=== PATIENT | female | born 1995 | race Caucasian/White ===

== ENCOUNTER → 2018-01-17 16:58 | Outpatient (CLI) | payer BC, SELFPAY | PROVIDERS: Visit Provider Nurse Practitioner Women's Health | DX: Z34.00 Encounter for supervision of normal first pregnancy, unspecified trimester (principal); Z3A.00 Weeks of gestation of pregnancy not specified | CPT/HCPCS: 87086; 87088 ==

== ENCOUNTER → 2018-01-22 13:56 | Outpatient (CLI) | payer BC, SELFPAY ==
--- NOTE | 2018-01-22 13:57 | US_ITS ---
STUDY: SECOND AND THIRD TRIMESTER OBSTETRICAL ULTRASOUND REASON FOR EXAM: Female, 22 years old. Bleeding LMP: TECHNIQUE: Transabdominal PRIOR ULTRASOUND: None. FINDINGS: There is a single intrauterine fetus. The fetus is in a transverse lie with the head to the maternal right. There is demonstrated cardiac activity with a heart rate of 149 bpm. There is a normal amniotic fluid volume. The largest amniotic fluid pocket measures 4.2 x 4.4 cm. The amniotic fluid index (NICOLE) is normal The placenta is posterior and low lying. Is 1.4 cm from the internal os. There are Grade 0 placental changes. The cervix measures in length. The bilateral adnexal regions are normal. BIOMETRY: BPD: 4.0 cm : 18 weeks, 7 days HC: 14.9 cm: 18 weeks, 1 days AC: 12.6 cm: 18 weeks, 2 days FL: 3.1 cm: 19 weeks, 4 days CI: 0.81 FL/BPD: 0.76 FL/HC: FL/AC: 0.24 HC/AC: 1.19 age by current US: 18 weeks, 4 days. LELE by current US: 06/21/2018. Estimated weight: 252 grams, +/- 37 grams, 85 %. Age by LMP: 18 weeks, 0 days. LELE by LMP: 06/25/2018. ANATOMY: Gender: Cranium: Normal lateral ventricles. Normal choroid plexus. Normal cerebellum. Normal cisterna magna. Normal face, nose and lips. Chest: 4 chambered heart not visualized because of position. Abdomen/Pelvis: Normal diaphragm. Normal stomach. Normal abdominal wall. Normal cord insertion. Normal 3 vessel cord. Normal kidneys. Normal bladder. Spine: Normal cervical spine. Normal thoracic spine. Normal lumbar spine. Normal sacrum. Extremities: Normal bilateral upper extremities. Normal bilateral lower extremities. IMPRESSION: Intrauterine with fetus in a transverse lie with the head to the maternal right. Composite measurements average out to be equivalent to 18 weeks 4 days +/- 5 days with an expected date of delivery of 06/21/2018. Estimated weight of 25 2 g +/- 3 7 g. This is in the 85th percentile Electronically Signed: Cristobal Chan, at 7:34 EDT Tel , Service support , US/OB Anatomy Scan
== END ==
PROVIDERS: Visit Provider Obstetrics & Gynecology
DX: O46.90 Antepartum hemorrhage, unspecified, unspecified trimester (principal); Z3A.00 Weeks of gestation of pregnancy not specified
CPT/HCPCS: 76805

== ENCOUNTER → 2018-04-04 07:48 | Outpatient (CLI) | payer BC, SELFPAY ==
--- NOTE | 2018-04-04 07:52 | US_ITS ---
STUDY: SECOND AND THIRD TRIMESTER OBSTETRICAL ULTRASOUND - LIMITED REASON FOR EXAM: Female, 22 years old. Gross. History of low-lying placenta. LMP: September 18, 2017. PRIOR ULTRASOUND: January 22, 2018. TECHNIQUE: Transabdominal # of Images: 73 TECHNICAL QUALITY: Adequate. FINDINGS: There is a single intrauterine fetus. The fetus is in a cephalic presentation. There is demonstrated cardiac activity with a heart rate of 60 bpm. There is a normal amniotic fluid volume. The largest amniotic fluid pocket measures 3.8 to cm. The amniotic fluid index (NICOLE) is 13.23 cm. The placenta is anterior in location and is not low lying. There are Grade 1 placental changes. The cervix measures 3.1 cm cm in length. BIOMETRY: BPD: 7.24 cm: 29 weeks, 1 days HC: 26.98 cm: 29 weeks, 3 days AC: 24.65 cm: 29 weeks, 0 days FL: 5.47 cm: 29 weeks, 0 days Age by LMP: 28 weeks, 2 days. LELE by LMP: June 25, 2018.. age by prior US: 28 weeks, 6 days. LELE by prior US: June 21, 2018. age by current US: 29 weeks, 1 days. LELE by current US: June 19, 2089. Estimated weight: 131, grams, +/- 191 grams, 63 percentile. A four-chamber view of the normal heart was obtained. US/OB Limited With Biometrics IMPRESSION: 1. Live single uterine at 29 weeks, 1 day. LELE is June 19, 2018. There is adequate interval growth since the prior study. 2. EFW 1311 g. 3. NICOLE is 13.23 cm. 4. Anterior grade 1 placenta. 5. Normal four-chamber view of the heart. Electronically Signed: Kris Rodriguez DO at 8:07 EDT Tel [phone], Service support ,
[2018-04-04 09:55] LABS: Absolute Lymphocyte Count 1.79 X10^3/ul (0.83-4.51); Absolute Neutrophil Count 12.3 X10^3/uL (2.0-7.7); Basophil# 0.02 X10^3/uL; Basophil% 0.1 % (0-1); Eosinophil# 0.08 X10^3/uL; Eosinophils% 0.5 % (0-5); Hematocrit 38.3 % (37-47); Hemoglobin 12.6 g/dl (12.0-15.0); Lymphocyte # 1.79 X10^3/ul (4.0); Lymphocyte % 11.9 % (19-41); Mean Corp Hgb Conc 32.9 g/gl (32-36); Mean Corpuscular Hgb 28.4 pg (27.0-32.0); Mean Corpuscular Volume 86.5 fL (81-99); Mean Platelet Vol. 8.6 fl (6.2-12.0); Monocyte# 0.75 X10^3/uL; Neutrophil # 12.33 X10^3/uL (2.7-7.7); Platelet Count 266 K/mm3 (150-450); RBC Distribution Width CV 13.2 % (11.6-14.6); RBC Distribution Width SD 42.2 fl (35.1-43.9); Red Blood Count 4.43 M/mm3 (4.2-5.4); White Blood Count 15.1 K/mm3 (4.4-11.0)
[2018-04-04 09:59] LABS: POSITIVE COUNT NO; POSITIVE DIFFERENTIAL NO; POSITIVE MORPHOLOGY NO
[2018-04-04 10:03] LABS: Glucose Challenge Gest 1H 50g 109 mg/dL (70-140)
== END ==
LOC: OPUS 07:50 → PAVLAB 09:21
PROVIDERS: Visit Provider Obstetrics & Gynecology
DX: Z34.92 Encounter for supervision of normal pregnancy, unspecified, second trimester (principal)
CPT/HCPCS: 36415; 76816; 82950; 85025; 86850; 86900

== ENCOUNTER → 2018-04-04 21:11 | Outpatient (CLI) | payer BC, SELFPAY | PROVIDERS: Referring Provider Obstetrics & Gynecology; Visit Provider Obstetrics & Gynecology | DX: O26.899 Other specified pregnancy related conditions, unspecified trimester (principal); M54.5 Low back pain; Z86.32 Personal history of gestational diabetes | CPT/HCPCS: 87086; 87088 ==

== ENCOUNTER → 2018-05-26 17:15 | Outpatient (CLI) | payer BC, SELFPAY ==
[2018-05-26 08:52] VITALS: BMI 38.4
--- OUTSIDE RECORDS SUMMARY | 2018-07-13 02:25 | XMS RPT_ITS ---
:1995 Author Organization OHIP Support Name Relationship Address Phone SHIMA HOOKS Unavailable [address] + [place] [phone] JANE COATES Unavailable [address] + [place] [address] [facility] Unavailable [address] + [place] [address] SHIMA HOOKS Unavailable Unavailable + SHIMA HOOKS Unavailable Unavailable + SHIMA HOOKS Unavailable [address] + [place] [address] JANE COATES Unavailable [address] + [place] [address] [facility] Unavailable [address] + [place] [address] SHIMA HOOKS Unavailable [address] + [place] [address] JANE COATES Unavailable [address] + [place] [address] [facility] [address] + [place] [address] SHIMA HOOKS Unavailable [address] + [place] [address] JANE COATES Unavailable [address] + [place] [address] [facility] Unavailable [address] + [place] [address] SHIMA HOOKS Unavailable [address] + [place] [address] JANE COATES Unavailable [address] + [address] [facility] [place] Unavailable [address] + [place] [address] JESSEE SHIMA Unavailable [address] + [place] [address] JANE COATES Unavailable [address] + [address] [facility] [place] Unavailable [address] + [place] [address] JESSEE SHIMA Unavailable [address] + [place] [address] JANE COATES Unavailable [address] + [address] [facility] [facility] Unavailable [address] + [place] [address] JESSEE SHIMA Unavailable [address] + [place] [address] JANE COATES Unavailable [address] + [address] [facility] [place] Unavailable [address] + [place] [address] JESSEE SHIMA Unavailable [address] + [place] [address] JANE COATES Unavailable [address] + [address] [facility] [facility] Unavailable [address] + [place] [address] SHIMA HOOKS Unavailable [address] + [place] [address] JANE COATES Unavailable [address] + [place] [phone] [facility] [place] Unavailable [address] + [place] [address] SHIMA HOOKS Unavailable [address] + [place] [phone] JANE COATES Unavailable [address] + [place] [address] [facility] [place] Unavailable [address] + [place] [address] SHIMA HOOKS Unavailable Unavailable + SHIMA HOOKS Unavailable [address] + [place] [address] JANE COATES Unavailable [address] + [place] [address] [facility] [place] Unavailable [address] + [place] [address] SHIMA HOOKS Unavailable [address] + [place] [address] JANE COATES Unavailable [address] + [place] [phone] [facility] [place] Unavailable [address] + [place] [address] SHIMA HOOKS Unavailable [address] + [place] [phone] JANE COATES Unavailable Unavailable + [facility] [place] Unavailable [address] + [place] [address] SHIMA HOOKS Unavailable [address] + [place] [address] JANE COATES Unavailable . + [place] [address] [facility] [place] Unavailable [address] + [place] [address] SHIMA HOOKS Unavailable [address] + [place] [address] JANE COATES Unavailable . + [place] [address] [facility] [place] Unavailable [address] + [place] [address] SHIMA HOOKS Unavailable [address] + [place] [address] JANE COATES Unavailable Unavailable + [facility] [place] Unavailable [address] + [place] [address] SHIMA HOOKS Unavailable Unavailable + SHIMA HOOKS Unavailable [address] + [place] [phone] JANE COATES Unavailable Unavailable + [facility] Unavailable [address] + [place] [address] SHIMA HOOKS Unavailable [address] + [address] Unavailable Unavailable + [place] [address] SHIMA HOOKS Unavailable [address] + [place] [phone] JANE COATES Unavailable [address] + [address] Unavailable [address] + [place] [address] YURI WILEY Unavailable Unavailable + SHIMA HOOKS Unavailable [address] + [place] [address] JANE COATES Unavailable [address] + [place] [phone] [facility] Unavailable [address] + [place] [address] YURI WILEY Unavailable Unavailable + Care Team Providers Name Role Phone Elisa Dumont Attending Unavailable Elisa Dumont Referring Unavailable Elisa Dumont Attending Unavailable Kelsey, Benjie Referring Unavailable FlagtownLoni Attending Unavailable Kelsey, Benjie Referring Unavailable Kelsey, Benjie Primary Care Unavailable Elisa Dumont Attending Unavailable Kelsey, Benjie Referring Unavailable Primay Care Physicia, No Primary Care Unavailable Elisa Dumont Attending Unavailable Kelsey, Benjie Referring Unavailable Elisa Dumont Admitting Unavailable Elisa Dumont Attending Unavailable Elisa Dumont Referring Unavailable Kelsey, Benjie Primary Care Unavailable Elisa Dumont Attending Unavailable Kelsey, Benjie Referring Unavailable Elisa Dumont Attending Unavailable Kelsey, Benjie Primary Care Unavailable Elisa Dumont Admitting Unavailable Marcanthony, Elisa Referring Unavailable Marcanthony, Elisa Admitting Unavailable Marcanthony, Elisa Attending Unavailable Marcanthony, Elisa Referring Unavailable Kelsey, Benjie Primary Care Unavailable Marcanthony, Elisa Consulting Unavailable Marcanthony, Elisa Admitting Unavailable Marcanthony, Elisa Attending Unavailable Marcanthony, Elisa Referring Unavailable Kelsey, Benjie Primary Care Unavailable Marcanthony, Elisa Consulting Unavailable Marcanthony, Elisa Attending Unavailable Kelsey, Benjie Referring Unavailable Marcanthony, Elisa Attending Unavailable Primay Care Physicia, No Primary Care Unavailable Marcanthony, Elisa Referring Unavailable [place], Loni Attending Unavailable Kelsey, Benjie Primary Care Unavailable Jamar, Loni Referring Unavailable Marcanthony, Elisa Attending Unavailable Primay Care Physicia, No Primary Care Unavailable Marcanthony, Elisa Attending Unavailable Primay Care Physicia, No Primary Care Unavailable Marcanthony, Elisa Referring Unavailable Aba, Cristina Attending Unavailable Marcanthony, Elisa Attending Unavailable Kelsey, Benjie Referring Unavailable [place], Loni Attending Unavailable Kelsey, Benjie Referring Unavailable Kelsey, Benjie Attending Unavailable Marcanthony, Elisa Attending Unavailable Kelsey, Benjie Referring Unavailable Marcanthony, Elisa Attending Unavailable Kelsey, Benjie Referring Unavailable Anjum Chester Attending Unavailable Kelsey, Benjie T Primary Care Unavailable Anjum Chester Attending Unavailable Kelsey, Benjie T Primary Care Unavailable Anjum Chester Admitting Unavailable NemoAnjum mccormick Admitting Unavailable NemoAnjum mccormick Attending Unavailable Kelsey, Benjie T Primary Care Unavailable Anjum Chester Attending Unavailable Kelsey, Benjie T Primary Care Unavailable Anjum Chester Admitting Unavailable Anjum Chester Attending Unavailable Kelsey, Benjie T Primary Care Unavailable Anjum Chester Attending Unavailable Kelsey, Benjie T Primary Care Unavailable NemoAnjum mccormick Attending Unavailable Kelsey, Benjie T Primary Care Unavailable MANJULA PARISI Attending Unavailable KELSEY, BENJIE DOVER Primary Care Unavailable KELSEY, BENJIE DOVER Attending Unavailable KELSEY, BENJIE JAZZMINE Primary Care Unavailable MANJULA PARISI Attending Unavailable KELSEY, BENJIE JAZZMINE Primary Care Unavailable KELSEY, BENJIE DOVER Attending Unavailable KELSEY, BENJIE JAZZMINE Primary Care Unavailable PROBLEMS PROBLEMS DATE TYPE CONDITION / CODE ATTENDING STATUS SOURCE 06/18/2018 Unknown G89.18 - Other acute Marcanthony, Active [place] postprocedural pain [facility] / G89.18(ICD-10) Hospital Repository 06/13/2018 Unknown Z86.32 - Personal Marcanthony, Active [place] history of [facility] gestational diabetes Hospital / Z86.32(ICD-10) Repository 06/13/2018 Unknown Z3A.37 - 37 weeks Marcanthony, Active [place] gestation of [facility] / Hospital Z3A.37(ICD-10) Repository 06/13/2018 Unknown Z34.82 - Encounter Marcanthony, Active [place] for supervision of [facility] other normal Hospital , second Repository trimester / Z34.82(ICD-10) 06/13/2018 Unknown Z30.2 - Encounter Marcanthony, Active [place] for sterilization / [facility] Z30.2(ICD-10) Hospital Repository 05/26/2018 Unknown Z34.90 - Encounter Marcanthony, Active [place] for supervision of [facility] normal , Hospital unspecified, Repository unspecified trimester / Z34.90(ICD-10) 05/26/2018 Unknown Z3A.36 - 36 weeks Marcanthony, Active [place] gestation of [facility] / Hospital Z3A.36(ICD-10) Repository 05/16/2018 Unknown Z3A.34 - 34 weeks Marcanthony, Active [place] gestation of [facility] / Hospital Z3A.34(ICD-10) Repository 05/02/2018 Unknown Z3A.32 - 32 weeks Loni Roldan Active [place] gestation of [facility] / Hospital Z3A.32(ICD-10) Repository 04/07/2018 Unknown O26.899 - Other Marcanthony, Active [place] specified [facility] related conditions, Hospital unspecified Repository trimester / O26.899(ICD-10) 04/07/2018 Unknown M54.5 - Low back Marcanthony, Active [place] pain / M54.5(ICD-10) [facility] Hospital Repository 04/04/2018 Unknown Z3A.21 - 21 weeks Marcanthony, Active [place] gestation of [facility] / Hospital Z3A.21(ICD-10) Repository 04/04/2018 Unknown O44.42 - Low lying Marcanthony, Active [place] placenta NOS or [facility] without hemorrhage, Hospital second trimester / Repository O44.42(ICD-10) 04/04/2018 Unknown Z23 - Encounter for Marcanthony, Active [place] immunization / [facility] Z23(ICD-10) Hospital Repository 04/04/2018 Unknown O09.893 - Marcanthony, Active [place] Supervision of other [facility] high risk Hospital pregnancies, third Repository trimester / O09.893(ICD-10) 04/04/2018 Unknown Z67.91 - Unspecified Marcanthony, Active [place] blood type, Rh [facility] negative / Hospital Z67.91(ICD-10) Repository 01/18/2018 Unknown Z34.00 - Encounter [place], Loni Active [place] for supervision of [facility] normal first Hospital , Repository unspecified trimester / Z34.00(ICD-10) 01/17/2018 Unknown O46.90 - Antepartum [place], Loni Active [place] hemorrhage, [facility] unspecified, Hospital unspecified Repository trimester / O46.90(ICD-10) 01/17/2018 Unknown Z3A.17 - 17 weeks Jamar, Loni Active [place] gestation of [facility] / Hospital Z3A.17(ICD-10) Repository PROCEDURES PROCEDURES No Procedure Records FoundRESULTS RESULTS OPERATIVE REPORT Observed: 06/17/2018 Status: F Source: [place] 11:35 AM [facility] REPOSITORY [facility] Medical Records Department [address] [place] [address] Operative Report 06/16/18 1433 MR#: [id number] Acct: [id number] Name: DARA HOOKS Rep #: [id number] : 1995 22 From: Elisa Dumont MD PCP: Benjie Cole Status: ADM IN Location: [place] [id number] Problem List (1) Active labor at term Status: Acute (2) Request for sterilization Status: Acute Comment: plan PPTL (3) Abnormal blood testing Status: Acute Comment: 12/11/17- preliminary positive HIV- retest was negative. tests repeated at previous office (4) Status: Acute Qualifiers: Comment: genetic and ntd screening declined. anatomy scan normal (5) Supervision of normal in second trimester Status: Acute Qualifiers: Comment: PRR EDC 06/25/18 Gr 3/ boy [facility] Kristen Spouse:Shima (6) History of gestational diabetes Status: Acute Report of Operation Date of Procedure: 06/16/18 Pre-Operative Diagnosis: sterilization Post-Operative Diagnosis: same Surgery/Procedure Performed:: tubal ligation via Filshie clips Description of Surgical Findings:: Normal uterus and tubes and ovaries bilaterally Type of Anesthesia:: Epidural Special Medications: none Specimen's removed: none Drains: Devlin Estimated Blood Loss (mL): 100 Fluids Replaced: cryStyloid Description of Procedure: Patient was taken to the operating room and epidural anesthesia was found to be adequate. Patient was placed in the dorsal supine position was prepped and draped in normal sterile fashion. Devlin catheter was used to drain the bladder. Infra umbilical incision was made with a scalpel after injecting with marcaine and carried through the underlying layer of the fascia with a scalpel fascial incision was extended bilaterally with Aguilera scissors and bowel packed away and the right fallopian tube identified confirmed to be fallopian tube by following it out to the fimbria and a Filshie clip was applied in the mid interstitial portion of the fallopian tube noting to completely transect the tube. This was repeated on the left side where the tube was identified and followed out to the fimbria and confirmed to be fallopian tube and then the mid interstitial portion of the tube was completely transected with the Filshie clip. Excellent hemostasis was noted. Fascia was closed with 0 Vicryl and skin closed with 3-0 Monocryl. No complications. Patient was taken recovery in stable condition. Grafts/Implants Used: Filshie clips - Complications none 06/17/18 1135 <Electronically signed by Elisa Dumont MD> Date Elisa Dumont MD CC: Benjie Cole; Elisa Dumont MD Signed DISCHARGE INSTRUCTION Observed: 06/16/2018 Status: F Source: [place] 3:37 AM [facility] REPOSITORY [facility] Medical Records Department [address] [facility] [place] [address] Instructions for Home/Discharge Instructions 06/16/18 0336 MR#: [id number] Acct: [id number] Name: DARA HOOKS Rep #: [id number] : 1995 22 From: Elisa Dumont MD PCP: Bnejie Cole Status: ADM IN Discharge Diet: No Restrictions - Increase fluid intake for the next 48 hours. Discharge Activity: Return to Normal Activity, May Drive - when you are no longer taking narcotic pain medications., May Shower, May Take a Tub Bath - in 7 days May resume sexual activity in: 4-6 weeks Additional Activity Instructions:: Ambulate often the next week after surgery. Nothing in the vagina for 5 days. Call your doctor if your incision/area has: Continuous Slow Oozing, Sudden Increased Bleeding, Increased Pain/ Swelling, Increased Redness, Foul Smelling Discharge Call your doctor if you observe: Fever of 101 or Higher Additional Instructions: If you experience any of the following, contact your healthcare provider. * Bleeding that soaks a pad every hour for 2 hours * Fever 100.4 or higher * Unrelieved incision or abdominal pain * Swelling, redness, discharge or bleeding from your incision or episiotomy site * Your incision begins to separate * Problems urinating (including inability to urinate or burning while urinating). * Visual changes * Severe headache * Flu-like symptoms * Pain or redness in one of both of your breasts * Pain, warmth, tenderness or swelling in your legs, especially the calf area * Frequent nausea and vomiting * Symptoms of depression or anxiety If you experience any of the following, call 911 or go to the nearest Emergency Room. * Chest pain * Problems breathing * Seizure activity * Partial or complete paralysis of a body part, slurred speech, weakness or drooping of the face, or a sudden inability to walk or hold your balance Allergies/Adverse Reactions: Allergies No Known Allergies Allergy (Verified 06/13/18 09:19) Medications to take at Discharge docosahexanoic acid 200 mg capsule 1 tab PO DAILY 01/17/18 acetaminophen 500 mg tablet 500 mg PO Q6H PRN 03/14/18 loratadine 10 mg tablet 10 mg PO DAILY 05/16/18 Please Follow Up With: Elisa Dumont MD - [phone] When: Call to make an appointment with your doctor in 6 weeks. If you had elevated Blood pressure or 4th degree laceration you will need to be seen in 2 weeks. Primary Care Physician: Benjie Cole [Primary Care Provider] - Test Results: Test results from this visit will be discussed in further detail at your follow-up appointment, if applicable. 06/16/18 0337 <Electronically signed by Elisa Dumont MD> Date Elisa Dumont MD CC: Benjie Cole Signed DISCHARGE INSTRUCTION Observed: 06/16/2018 Status: F Source: [place] 3:36 AM [facility] REPOSITORY [facility] Medical Records Department [address] [place] [address] Instructions for Home/Discharge Instructions 06/16/18335 MR#: [id number] Acct: [id number] Name: DARA HOOKS Rep #: [id number] : 1995 From: Elisa Dumont MD PCP: Benjie Cole Status: ADM IN Discharge Diet: No Restrictions - Increase fluid intake for the next 48 hours. Discharge Activity: Return to Normal Activity, May Drive - when you are no longer taking narcotic pain medications., May Shower, May Take a Tub Bath - in 7 days Additional Activity Instructions:: Ambulate often the next week after surgery. Nothing in the vagina for 5 days. Call your doctor if your incision/area has: Continuous Slow Oozing, Sudden Increased Bleeding, Increased Pain/ Swelling, Increased Redness, Foul Smelling Discharge Call your doctor if you observe: Fever of 101 or Higher Allergies/Adverse Reactions: Allergies No Known Allergies Allergy (Verified 06/13/18 09:19) Medications to take at Discharge docosahexanoic acid 200 mg capsule 1 tab PO DAILY 01/17/18 acetaminophen 500 mg tablet 500 mg PO Q6H PRN 03/14/18 loratadine 10 mg tablet 10 mg PO DAILY 05/16/18 Primary Care Physician: Benjie Cole [Primary Care Provider] - Test Results: Test results from this visit will be discussed in further detail at your follow-up appointment, if applicable. Please Follow Up With: Elisa Dmuont MD - [phone] 06/16/18335 <Electronically signed by Elisa Dumont MD> Date Elisa Dumont MD CC: Benjie Cole Signed OPERATIVE REPORT Observed: 06/16/2018 Status: F Source: [place] 3:33 AM [facility] REPOSITORY [facility] Medical Records Department [address] [place] [address] Operative Report 06/16/18 0327 MR#: [id number] Acct: [id number] Name: DARA HOOKS Rep #: [id number] : 1995 22 From: Elisa Dumont MD PCP: Benjie Cole Status: ADM IN Y Location: [id number] - Problem List (1) Active labor at term Status: Acute (2) Request for sterilization Status: Acute Comment: plan PPTL (3) Abnormal blood testing Status: Acute Comment: 12/11/17- preliminary positive HIV- retest was negative. tests repeated at previous office (4) Status: Acute Qualifiers: Comment: genetic and ntd screening declined. anatomy scan normal (5) Supervision of normal in second trimester Status: Acute Qualifiers: Comment: PRR EDC 06/25/18 Gr 3/ boy NoOh [place] Spouse:Shima (6) History of gestational diabetes Status: Acute Vaginal Delivery Maternal Presentation: Active Labor 22 yo @ 38w5d IAL Amniotic Membrane Rupture Type: Artificial Amniotic Fluid Description: Clear Final LELE: 06/25/18 Gestational age: 38 Weeks and 5 Days Date of Procedure: 06/16/18 Pre-Operative Diagnosis: ial Post-Operative Diagnosis: same Surgery/ Procedure Performed: Spontaneous Vaginal Delivery Type of Anesthesia: Epidural Description of Procedure: Patient began pushing and delivered the head in the QASIM presentation. The head was delivered atraumatically. The anterior and posterior shoulders delivered without complication followed by the rest of the infant and the infant was placed on the maternal abdomen. Delayed cord clamping was employed for approximately 60 seconds. Cord was clamped and cut and gentle traction was applied to the cord and the placenta delivered spontaneously immediately following it was noted to be intact with three-vessel cord. The perineum and vagina were inspected and noted to have no laceration. EBL was 100 cc. Patient and tolerated delivery well. Presentation: VINITA Placental Delivery Description: Spontaneous Placenta Disposition: [facility] Cord Vessel Description: 3 Vessels Cord Entanglement: None Estimated Blood Loss: 100 Infant A gender: Male Episiotomy Description: None Laceration: None Medications given after delivery: IV Pitocin Complications: None 06/16/18 0333 <Electronically signed by Elisa Dumont MD> Date Elisa Dumont MD CC: Benjie Cole; Elisa Dumont MD Signed HISTORY AND PHYSICAL Observed: 06/16/2018 Status: F Source: [place] EXAM 3:26 AM [facility] REPOSITORY [facility] Medical Records Department [address] [place] [address] History and Physical 06/16/18 0321 MR#: [id number] Acct: [id number] Name: DARA HOOKS Rep #: [id number] : 1995 22 From: Elisa Dumont MD PCP: Benjie Cole Status: ADM IN Location: [id number] - Problem List (1) Active labor at term Status: Acute (2) Request for sterilization Status: Acute Comment: plan PPTL (3) Abnormal blood testing Status: Acute Comment: 12/11/17- preliminary positive HIV- retest was negative. tests repeated at previous office (4) Status: Acute Qualifiers: Comment: genetic and ntd screening declined. anatomy scan normal (5) Supervision of normal in second trimester Status: Acute Qualifiers: Comment: PRR EDC 06/25/18 Gr 3/ boy Marilia [place] Spouse:Shima (6) History of gestational diabetes Status: Acute History Date of Admission: 06/16/18 Final LELE: 06/25/18 Gestational age: 38 Weeks and 5 Days History of this : This is a 22 year-old, at 38 weeks gestational age presents in active labor 5-6 cm. Patient has had an uncomplicated and tonight denied any vaginal bleeding loss of fluid and admits good movement. Medical History: Medical History (Last Reviewed 06/13/18 @ 09:19 by Juju Clayton) Gestational diabetes O24.419 Allergies No Known Allergies Allergy (Verified 06/13/18 09:19) Home Medications: Home Medications docosahexanoic acid 200 mg capsule 1 tab PO DAILY 01/17/18 acetaminophen 500 mg tablet 500 mg PO Q6H PRN 03/14/18 loratadine 10 mg tablet 10 mg PO DAILY 05/16/18 Smoking Status: Former smoker Alcohol: None Number of Fetus(es): 1 Heart Tracing: heart tones 130s moderate variability reactive no decelerations category 1 tracing TOCO Analysis: 2-3 minutes History Past Pregnancies: Past Pregnancies Past Pregnancies Del. DateName GA/Weeks Outcome Route Bth WeighInfant GeLabor LgtAnesthesiDel LocatProvider FOB t n h a n Delivery Date: 12/20/15 On 01/17/18 @ 12:07 SheridanDara osman Gestational diabetes. Patient was induced at 39 weeks due to gestational diabetes. No other issues during or delivery. Labs: Mom's Problem List Problem Status Onset Code Active labor at term Acute Mom's Labs AND Results WBC 16.4 H RBC 4.14 L Course Did the patient receive Yes care? Labs Blood Type: B Current Obstetrical History Gestational Diabetes No Incompetent Cervix No Infertility No IUGR No Macrosomia No Hypertension/Pre-eclampsia No Placenta Previa/Abruption Yes: resolved PTL/PROM No Uterine anomaly No Oligohydramnios No Polyhydramnios No Multiple gestation No Past Medical History Asthma No Diabetes No Hypertension No Heart disease No Mitral valve prolapse No Neurologic/Seizure disorder/ No Migraines Kidney disease No Liver disease No Varicosities No Clotting disorders/Hx of DVT No Thyroid Dysfunction No Other medical diseases No Psychiatric disorders No Major trauma No Abnormal PAP smear No Sleep apnea No Mammogram in the last 2 years No Social History Marital Status: Alleged father Shima Hx Smoking Yes Smoking Status Former smoker Expected Delivery Method: Spontaneous Vaginal Review of Systems Constitutional: Denies: Fever, Malaise Eyes: Denies: Blurred vision, Vision Change HEENT: Denies: Head Aches, Visual Changes Cardiovascular: Denies: Chest Pain, Palpitations Respiratory: Denies: Cough, Shortness of Breath, Wheezing Gastrointestinal: Reports: Abdominal Pain. Denies: Diarrhea, Nausea, Vomiting Genitourinary: Denies: Dysuria, Hematuria Musculoskeletal: Denies: Joint Pain, Muscle pain Skin: Denies: Lesions, Rash Neurological: Denies: Blurred vision, Focal weakness, Headaches Psychiatric: Denies: Anxiety, Depression Endocrine: Denies: Heat/ Cold Intolerance Hematologic/ Lymphatic: Denies: Easy Bruising, Easy Bleeding Physical Exam General: Alert, Cooperative, No apparent distress HEENT: Atraumatic, Normocephalic. Negative for: Thyromegaly, Lymphadenopathy Cardiovascular: Regular rate Lungs: Normal air movement Abdomen: Soft, Non Tender, Gravid Neurological: Deep Tendon Reflexes 2+/4 and Symmetrical, Neuro grossly intact. Negative for: Clonus MOSHGIACH: Normal external genitalia. Negative for: Vulvar lesions Estimated gestational size: Appropriate for gestational size Presentation: Cephalic Assessment/Plan All Active Problems (Last Reviewed 06/13/18 @ 09:19 by Juju Clayton) Active labor at term (Acute) Request for sterilization (Acute) Abnormal blood testing (Acute) (Acute) Supervision of normal in second trimester (Acute) History of gestational diabetes (Acute) Low lying placenta nos or without hemorrhage, second trimester (Resolved) This is a 22 year-old, at 38 weeks gestational age presents IAL Patient presents IAL, plan expectant management for , pitocin PRN. arom clear fluid Pain management: plans epidural. GBS negative Management of any complications: none. plan PPTL I have [facility] and made any clinically relevant updates. 06/16/18 0326 <Electronically signed by Elisa Dumont MD> Date Elisa Dumont MD Cosigner Signature: Date (if applicable) CC: Benjie Cole; Elisa Dumont MD Signed CBC-COMPLETE BLOOD CNT Collected: 06/15/2018 Status: F Source: [place] NO DIFF 10:20 PM [facility] REPOSITORY TYPE CODE TESTS RESULT OUT OF RANGE REFERENCE UNITS LAB L100.1000 4.4-11.0 K/mm3 High WBC 16.4 LAB L100.1200 4.2-5.4 M/mm3 Low RBC 4.14 LAB L100.1300 12.0-15.0 g/dl Low HGB 11.1 LAB L100.1400 37-47 % Low HCT 34.3 LAB L100.1500 81-99 fL Normal MCV 82.9 LAB L100.1600 27.0-32.0 pg Low MCH 26.8 LAB L100.1700 32-36 g/gl Normal MCHC 32.4 LAB L100.1810 11.6-14.6 % Normal RDW CV 13.4 LAB L100.1820 35.1-43.9 fl Normal RDW SD 40.9 LAB L100.1900 150-450 K/mm3 Normal PLT 255 LAB L100.2000 6.2-12.0 fl Normal MPV 8.5 Performed By: #### L100.0500 #### [facility] [address] [place], [address] TYPE AND SCREEN Collected: 06/15/2018 Status: F Source: [place] 10:20 PM [facility] REPOSITORY Order Comment: Reason for Type AND Screen/Red Cells: TYPE CODE TESTS RESULT OUT OF RANGE REFERENCE UNITS LAB B10.0800 B Normal BLOOD TYPE GEL POSITIVE LAB B100.4000 Normal Antibody NEGATIVE Screen Performed By: #### B101.7450 #### [facility] [address] [place], [place], [address] SOCIAL SERVICE LIAISON OFFICE VISIT Observed: 06/13/2018 Status: F Source: [place] REPORT 9:32 AM [facility] REPOSITORY [facility] [address] [place] [address] OFFICE VISIT Date of Service: 06/13/18 MR#: [id number] Acct: [id number] Name: DARA HOOKS Reynaldo Rep #: [id number] : 1995 Provider: Elisa Dumont MD Age/Sex: 22/F Location: [facility] [place] Status: Signed Intake Vital Signs06/13/18 Body Mass Index (BMI) 38.4 06/13/18 Height 5 ft 9 in 06/13/18 Weight: 263 lb 8 oz 06/13/18 Body Mass Index (BMI) 38.9 12/28/18 Blood Pressure 124/84 H Intake Visit Reasons: 38 week ob Director Of Corporate Responsibility Required: No Is patient in pain?: No Allergies No Known Allergies Allergy (Verified 06/13/18 09:19) Medications docosahexanoic acid 200 mg capsule mg PO 01/17/18 [History Confirmed 06/13/18] acetaminophen 500 mg tablet 500 mg PO Q6H PRN 03/14/18 [History Confirmed 06/13/18] loratadine 10 mg tablet 10 mg PO DAILY 05/16/18 [History Confirmed 06/13/18] Last Menstral Period: 09/18/17 Zika: Zika virus screening: Negative : No PFSH PFSH Medical History Gestational diabetes (Acute) Family History Grandmother Breast cancer Hypertension Skin cancer Mother Skin cancer Social History Smoking Status: Never smoker alcohol intake: never substance use type: does not use caffeine: Yes seatbelt use: always do you feel safe at home: Yes 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 DateName GA/Weeks Outcome Route Bth WeighInfant GeLabor LgtAnesthesiDel LocatProvider FOB t n h a n Delivery Date: 12/20/15 On 01/17/18 @ 12:07 Dara Swartz Gestational diabetes. Patient was induced at 39 weeks due to gestational diabetes. No other issues during or delivery. HPI 38 week ob: Details: DARA HOOKS is a 22 year old who presents for routine OB visit. OB Visit LELE Calculator Estimated Delivery Date 06/25/18 Based on LMP (certain) 09/18/17 Current WG 38w 2d Number 1 Expected Delivery Route/Plan Specific Issue/Plans flu vaccine: Declined minichart given: yes tdap vaccine: Given 04/04/2018 rhogam: na LARC form signed: declines labor support person: Shima pain management: epidural cut cord/dad catch: maybe : yes PP control planned: PPTL special requests: [] Initial Weight: 250 lb Date Weight BP Urine PFHR FuHt Pres MCTX DilatioFetal SVisit NProvideComment rot ov n t ote r s EGA Ef Gluco faced se 01/17/1247 lb 118/83 [id number] Has had 8 (-3 lb) e off an 17 d on li w 2d Negati ght vag ve inal bl eeding and osvaldo e disco mfort. Prior O BGYN castorena s not e valuate d or do ne US t hus marcellus son for MOHAN Visit Notes Visit Date: 06/13/18 no vb lof good fm no ergular ctx Elisa Dumont MD on 06/13/18 Visit Date: 06/06/18 no vb lof good fm no regular ctx Elisa Dumont MD on 06/06/18 Visit Date: 05/26/18 no vb lof good fm no regular ctx Elisa Dumont MD on 05/26/18 Visit Date: 05/16/18 no vb lof good fm no regular ctx. multiple questions answered. title 19 form signed. Elisa Dumont MD on 05/16/18 Visit Date: 05/02/18 No VB, LOF. Doing well MARJORIE Gutierrez on 05/02/18 Visit Date: 04/18/18 no vb lof good fm no regular ctx Elisa Dumont MD on 04/18/18 Visit Date: 04/04/18 no vb lof good fm no ergular ctx Elisa Dumont MD on 04/04/18 Visit Date: 03/14/18 no vb lof good fm no regular ctx Elisa Dumont MD on 03/14/18 Visit Date: 02/11/18 no vb lof good fm no regular ctx Elisa Dumont MD on 02/19/18 Visit Date: 01/17/18 Has had off and on light vaginal bleeding and some discomfort. Prior OBGYN has not evaluated or done US thus reason for MOHAN MARJORIE Gutierrez on 01/17/18 Diagnostics Diagnostics Labs Blood Type B POSITIVE 04/04/18 Antibody Screen NEGATIVE 04/04/18 Hct 38.3 % (37-47) 04/04/18 Hgb 12.6 g/dl (12.0-15.0) 04/04/18 Obstetrics Ultrasound 04/04/18 Glucose 1 Hr 50 gm 109 mg/dL (70-140) 04/04/18 Group B Strep DNA Cancelled 05/26/18 Details: HIV: Urine Culture: Sequential Screen: NIPT Screen: Results [id number] Office Urine Glucose Negative Last Edit by Juju Clayton on 06/13/18 09:20 Office Urine Protein Trace Last Edit by Juju Clayton on 06/13/18 09:20 Assessment AND Plan Problems 1. History of gestational diabetes Z86.32 2. 37 weeks gestation of Z3A.37 genetic and ntd screening declined. anatomy scan normal 3. Request for sterilization Z30.2 plan PPTL 4. Encounter for supervision of other normal in second trimester Z34.82 PRR EDC 06/25/18 Gr 08/15 boy Marilia Peterson Spouse:Shima 5. Abnormal blood testing 12/11/17- preliminary positive HIV- retest was negative. tests repeated at previous office Plan movement and labor precautions reviewed. ACOG trimester education reviewed and updated. see problem list details for updated plan management information and see below for orders placed at this visit. [place] appropriate handout given. Orders Orders: Coding Level of Care Code OB Routine Diagnoses History of gestational diabetes Z86.32 37 weeks gestation of Z3A.37 Weeks of gestation: 37 weeks Request for sterilization Z30.2 Encounter for supervision of other normal in second trimester Z34.82 Normal : other normal Abnormal blood testing 06/13/18 0932 <Electronically signed by Elisa Dumont MD> Date Elisa Dumont MD Cosigner Signature: Date (if applicable) CC: SOCIAL SERVICE LIAISON OFFICE VISIT Observed: 06/06/2018 Status: F Source: [place] REPORT 10:49 AM [facility] REPOSITORY [facility] [address] [place] [address] OFFICE VISIT Date of Service: 06/06/18 MR#: [id number] Acct: [id number] Name: DARA HOOKS Rep #: [id number] : 1995 Provider: Elisa Dumont MD Age/Sex: 22/F Location: [facility] [place] Status: Signed Intake Vital Signs06/06/18 Body Mass Index (BMI) 38.4 06/06/18 Height 5 ft 9 in 06/06/18 Weight: 265 lb 06/06/18 Body Mass Index (BMI) 39.1 06/06/18 Blood Pressure 104/68 Intake Visit Reasons: 37 week ob Chief Complaint: est ob Director Of Corporate Responsibility Required: No Is patient in pain?: No Allergies No Known Allergies Allergy (Verified 06/06/18 10:13) Medications docosahexanoic acid 200 mg capsule mg PO 01/17/18 [History Confirmed 06/06/18] acetaminophen 500 mg tablet 500 mg PO Q6H PRN 03/14/18 [History Confirmed 06/06/18] loratadine 10 mg tablet 10 mg PO DAILY 05/16/18 [History Confirmed 06/06/18] Last Menstral Period: 09/18/17 Zika: Zika virus screening: Negative : No PFSH PFSH Medical History Gestational diabetes (Acute) Family History Grandmother Breast cancer Hypertension Skin cancer Mother Skin cancer Social History Smoking Status: Never smoker alcohol intake: never substance use type: does not use caffeine: Yes seatbelt use: always do you feel safe at home: Yes 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 DateName GA/Weeks Outcome Route Bth WeighInfant GeLabor LgtAnesthesiDel LocatProvider FOB t n h a n Delivery Date: 12/20/15 On 01/17/18 @ 12:07 Dara Swartz Gestational diabetes. Patient was induced at 39 weeks due to gestational diabetes. No other issues during or delivery. HPI 37 week ob: Details: DARA HOOKS is a 22 year old who presents for routine OB visit. OB Visit LELE Calculator Estimated Delivery Date 06/25/18 Based on LMP (certain) 09/18/17 Current WG 37w 2d Number 1 Expected Delivery Route/Plan Specific Issue/Plans flu vaccine: Declined minichart given: yes tdap vaccine: Given 04/04/2018 rhogam: na LARC form signed: declines labor support person: Shima pain management: epidural cut cord/dad catch: maybe : yes PP control planned: PPTL special requests: [] Initial Weight: 250 lb Date Weight BP Urine PrFHR FuHt Pres MoCTX DilationFetal StVisit NoProviderComments E ot v te GA G Effac lucose ed Visit Notes Visit Date: 06/06/18 no vb lof good fm no regular ctx Elisa Dumont MD on 06/06/18 Visit Date: 05/26/18 no vb lof good fm no regular ctx Elisa Dumont MD on 05/26/18 Visit Date: 05/16/18 no vb lof good fm no regular ctx. multiple questions answered. title 19 form signed. Elisa Dumnot MD on 05/16/18 Visit Date: 05/02/18 No VB, LOF. Doing well MARJORIE Gutierrez on 05/02/18 Visit Date: 04/18/18 no vb lof good fm no regular ctx Elisa Dumont MD on 04/18/18 Visit Date: 04/04/18 no vb lof good fm no ergular ctx Elisa Dumont MD on 04/04/18 Visit Date: 03/14/18 no vb lof good fm no regular ctx Elisa Dumont MD on 03/14/18 Visit Date: 02/11/18 no vb lof good fm no regular ctx Elisa Dumont MD on 02/19/18 Visit Date: 01/17/18 Has had off and on light vaginal bleeding and some discomfort. Prior OBGYN has not evaluated or done US thus reason for MOHAN MARJORIE Gutierrez on 01/17/18 Diagnostics Diagnostics Labs Blood Type B POSITIVE 04/04/18 Antibody Screen NEGATIVE 04/04/18 Hct 38.3 % (37-47) 04/04/18 Hgb 12.6 g/dl (12.0-15.0) 04/04/18 Obstetrics Ultrasound 04/04/18 Glucose 1 Hr 50 gm 109 mg/dL (70-140) 04/04/18 Group B Strep DNA Cancelled 05/26/18 Details: HIV: Urine Culture: Sequential Screen: NIPT Screen: Results [id number] Office Urine Glucose Negative Last Edit by Angelina Hurtado on 06/06/18 10:17 Assessment AND Plan Problems 1. History of gestational diabetes Z86.32 2. 37 weeks gestation of Z3A.37 genetic and ntd screening declined. anatomy scan normal 3. Encounter for supervision of other normal in second trimester Z34.82 PRR EDC 06/25/18 Gr 08/15 boy Marilia Peterson Spouse:Shima 4. Abnormal blood testing 12/11/17- preliminary positive HIV- retest was negative. tests repeated at previous office 5. Request for sterilization Z30.2 plan PPTL Plan movement and labor precautions reviewed. ACOG trimester education reviewed and updated. see problem list details for updated plan management information and see below for orders placed at this visit. [place] appropriate handout given. Orders Orders: Coding Level of Care Code OB Routine Diagnoses History of gestational diabetes Z86.32 37 weeks gestation of Z3A.37 Weeks of gestation: 37 weeks Encounter for supervision of other normal in second trimester Z34.82 Normal : other normal Abnormal blood testing Request for sterilization Z30.2 06/06/18 1049 <Electronically signed by Elisa Dumont MD> Date Elisa Dumont MD Cosigner Signature: Date (if applicable) CC: SOCIAL SERVICE LIAISON OFFICE VISIT Observed: 05/26/2018 Status: F Source: [place] REPORT 9:00 AM [facility] REPOSITORY [facility] [address] [place] [address] OFFICE VISIT Date of Service: 05/26/18 MR#: [id number] Acct: [id number] Name: DARA HOOKS Rep #: [id number] : 1995 Provider: Elisa Dumont MD Age/Sex: 22/F Location: [facility] [place] Status: Signed Intake Vital Signs05/26/18 Body Mass Index (BMI) 38.4 05/26/18 Height 5 ft 9 in 05/26/18 Weight: 264 lb 4 oz 05/26/18 Body Mass Index (BMI) 39.0 05/26/18 Blood Pressure 108/74 Intake Visit Reasons: 36 week ob Director Of Corporate Responsibility Required: No Is patient in pain?: No Allergies No Known Allergies Allergy (Verified 05/26/18 08:52) Medications docosahexanoic acid 200 mg capsule mg PO 01/17/18 [History Confirmed 05/26/18] acetaminophen 500 mg tablet 500 mg PO Q6H PRN 03/14/18 [History Confirmed 05/26/18] loratadine 10 mg tablet 10 mg PO DAILY 05/16/18 [History Confirmed 05/26/18] Last Menstral Period: 09/18/17 Zika: Zika virus screening: Negative : No PFSH PFSH Medical History Gestational diabetes (Acute) Family History Grandmother Breast cancer Hypertension Skin cancer Mother Skin cancer Social History Smoking Status: Never smoker alcohol intake: never substance use type: does not use caffeine: Yes seatbelt use: always do you feel safe at home: Yes 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 DateName GA/Weeks Outcome Route Bth WeighInfant GeLabor LgtAnesthesiDel LocatProvider FOB t n h a n Delivery Date: 12/20/15 On 01/17/18 @ 12:07 Dara Swartz Gestational diabetes. Patient was induced at 39 weeks due to gestational diabetes. No other issues during or delivery. HPI 36 week ob: Details: DARA HOOKS is a 22 year old who presents for routine OB visit. OB Visit LELE Calculator Estimated Delivery Date 06/25/18 Based on LMP (certain) 09/18/17 Current WG 35w 5d Number 1 Expected Delivery Route/Plan Specific Issue/Plans flu vaccine: Declined minichart given: yes tdap vaccine: Given 04/04/2018 rhogam: na LARC form signed: declines labor support person: Shima pain management: epidural cut cord/dad catch: maybe : yes PP control planned: PPTL special requests: [] Initial Weight: 250 lb Date Weight BP Urine PrFHR FuHt Pres MoCTX DilationFetal StVisit NoProviderComments E ot v te GA G Effac lucose ed Visit Notes Visit Date: 05/26/18 no vb lof good fm no regular ctx Elisa Dumont MD on 05/26/18 Visit Date: 05/16/18 no vb lof good fm no regular ctx. multiple questions answered. title 19 form signed. Elisa Dumont MD on 05/16/18 Visit Date: 05/02/18 No VB, LOF. Doing well MARJORIE Gutierrez on 05/02/18 Visit Date: 04/18/18 no vb lof good fm no regular ctx Elisa Dumont MD on 04/18/18 Visit Date: 04/04/18 no vb lof good fm no ergular ctx Elisa Dumont MD on 04/04/18 Visit Date: 03/14/18 no vb lof good fm no regular ctx Elisa Dumont MD on 03/14/18 Visit Date: 02/11/18 no vb lof good fm no regular ctx Elisa Dumont MD on 02/19/18 Visit Date: 01/17/18 Has had off and on light vaginal bleeding and some discomfort. Prior OBGYN has not evaluated or done US thus reason for MOHAN AMRJORIE Gutierrez on 01/17/18 Diagnostics Diagnostics Labs Blood Type B POSITIVE 04/04/18 Antibody Screen NEGATIVE 04/04/18 Hct 38.3 % (37-47) 04/04/18 Hgb 12.6 g/dl (12.0-15.0) 04/04/18 Obstetrics Ultrasound 04/04/18 Glucose 1 Hr 50 gm 109 mg/dL (70-140) 04/04/18 Details: HIV: Urine Culture: Sequential Screen: NIPT Screen: Results [id number] Office Urine Glucose Negative Last Edit by Juju Clayton on 05/26/18 08:51 Office Urine Protein Negative Last Edit by Juju Clayton on 05/26/18 08:51 Assessment AND Plan Problems 1. History of gestational diabetes Z86.32 2. Encounter for supervision of other normal in second trimester Z34.82 PRR EDC 06/25/18 Gr 3/ boy Marilia Peterson Spouse:Shima 3. 36 weeks gestation of Z3A.36 genetic and ntd screening declined. anatomy scan normal 4. Abnormal blood testing 12/11/17- preliminary positive HIV- retest was negative. tests repeated at previous office Plan movement and labor precautions reviewed. ACOG trimester education reviewed and updated. see problem list details for updated plan management information and see below for orders placed at this visit. [place] appropriate handout given. Orders Orders: Coding Level of Care Code OB Routine Diagnoses History of gestational diabetes Z86.32 Encounter for supervision of other normal in second trimester Z34.82 Normal : other normal 36 weeks gestation of Z3A.36 Weeks of gestation: 36 weeks Abnormal blood testing 05/26/18 0900 <Electronically signed by Elisa Dumont MD> Date Elisa Dumont MD Cosigner Signature: Date (if applicable) CC: Observed: 05/26/2018 Status: F Source: [place]A CULTURE, GROUP B 12:00 AM [facility] STREPTOCOCCUS REPOSITORY AMANDO Culture Group B Beta Streptococcus is not isolated. Performed By: #### M100.1800 #### [place] [facility] [address] [place], [address] SOCIAL SERVICE LIAISON OFFICE VISIT Observed: 05/16/2018 Status: F Source: [place] REPORT 11:31 AM [facility] REPOSITORY [facility] [address] [place] [address] OFFICE VISIT Date of Service: 05/16/18 MR#: [id number] Acct: [id number] Name: DARA HOOKS Rep #: [id number] : 1995 Provider: Elisa Dumont MD Age/Sex: 22/F Location: [facility] [place] Status: Signed Intake Vital Signs05/16/18 Body Mass Index (BMI) 38.4 05/16/18 Height 5 ft 9 in 05/16/18 Weight: 263 lb 05/16/18 Body Mass Index (BMI) 38.8 05/16/18 Blood Pressure 122/80 H Intake Visit Reasons: 34 week ob Chief Complaint: est ob Director Of Corporate Responsibility Required: No Is patient in pain?: No Allergies No Known Allergies Allergy (Verified 05/16/18 10:58) Medications docosahexanoic acid 200 mg capsule mg PO 01/17/18 [History Confirmed 05/16/18] acetaminophen 500 mg tablet 500 mg PO Q6H PRN 03/14/18 [History Confirmed 05/02/18] loratadine 10 mg tablet 10 mg PO DAILY 05/16/18 [History Confirmed 05/16/18] Last Menstral Period: 09/18/17 Zika: Zika virus screening: Negative : No PFSH PFSH Medical History Gestational diabetes (Acute) Family History Grandmother Breast cancer Hypertension Skin cancer Mother Skin cancer Social History Smoking Status: Never smoker alcohol intake: never substance use type: does not use caffeine: Yes seatbelt use: always do you feel safe at home: Yes 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 DateName GA/Weeks Outcome Route Bth WeighInfant GeLabor LgtAnesthesiDel LocatProvider FOB t n h a n Delivery Date: 12/20/15 On 01/17/18 @ 12:07 Dara Swartz Gestational diabetes. Patient was induced at 39 weeks due to gestational diabetes. No other issues during or delivery. HPI 34 week ob: Details: DARA HOOKS is a 22 year old who presents for routine OB visit. OB Visit LELE Calculator Estimated Delivery Date 06/25/18 Based on LMP (certain) 09/18/17 Current WG 34w 2d Number 1 Expected Delivery Route/Plan Specific Issue/Plans flu vaccine: Declined minichart given: yes tdap vaccine: Given 04/04/2018 rhogam: na LARC form signed: declines labor support person: Shima pain management: epidural cut cord/dad catch: maybe : yes PP control planned: PPTL special requests: [] Initial Weight: 250 lb Date Weight BP Urine PrFHR FuHt Pres MoCTX DilationFetal StVisit NoProviderComments E ot v te GA G Effac lucose ed Visit Notes Visit Date: 05/16/18 no vb lof good fm no regular ctx. multiple questions answered. title 19 form signed. Elisa Dumont MD on 05/16/18 Visit Date: 05/02/18 No VB, LOF. Doing well MARJORIE Gutierrez on 05/02/18 Visit Date: 04/18/18 no vb lof good fm no regular ctx Elisa Dumont MD on 04/18/18 Visit Date: 04/04/18 no vb lof good fm no ergular ctx Elisa Dumont MD on 04/04/18 Visit Date: 03/14/18 no vb lof good fm no regular ctx Elisa Dumont MD on 03/14/18 Visit Date: 02/11/18 no vb lof good fm no regular ctx Elisa Dumont MD on 02/19/18 Visit Date: 01/17/18 Has had off and on light vaginal bleeding and some discomfort. Prior OBGYN has not evaluated or done US thus reason for MOHAN MARJORIE Gutierrez on 01/17/18 Diagnostics Diagnostics Labs Blood Type B POSITIVE 04/04/18 Antibody Screen NEGATIVE 04/04/18 Hct 38.3 % (37-47) 04/04/18 Hgb 12.6 g/dl (12.0-15.0) 04/04/18 Pap Smear Negative 04/11/16 Obstetrics Ultrasound 04/04/18 Glucose 1 Hr 50 gm 109 mg/dL (70-140) 04/04/18 Details: HIV: Urine Culture: Sequential Screen: NIPT Screen: Results [id number] Office Urine Glucose Negative Last Edit by Angelina Hurtado on 05/16/18 10:59 Office Urine Protein Negative Last Edit by Angelina Hurtado on 05/16/18 10:59 Assessment AND Plan Problems 1. History of gestational diabetes Z86.32 2. 34 weeks gestation of Z3A.34 genetic and ntd screening declined. anatomy scan normal 3. Encounter for supervision of other normal in second trimester Z34.82 PRR EDC 06/25/18 Gr 08/15 boy Marilia Peterson Spouse:Shima 4. Abnormal blood testing 12/11/17- preliminary positive HIV- retest was negative. tests repeated at previous office Plan movement and labor precautions reviewed. ACOG trimester education reviewed and updated. see problem list details for updated plan management information and see below for orders placed at this visit. [place] appropriate handout given. Orders Orders: Medications New: Coding Level of Care Code OB Routine Diagnoses History of gestational diabetes Z86.32 34 weeks gestation of Z3A.34 Weeks of gestation: 34 weeks Encounter for supervision of other normal in second trimester Z34.82 Abnormal blood testing 05/16/18 1131 <Electronically signed by Elisa Dumont MD> Date Elisa Dumont MD Cosigner Signature: Date (if applicable) CC: SOCIAL SERVICE LIAISON OFFICE VISIT Observed: 05/02/2018 Status: F Source: [place] REPORT 12:25 PM [facility] [address] [place] [address] OFFICE VISIT Date of Service: 05/02/18 MR#: [id number] Acct: [id number] Name: DARA HOOKS Rep #: [id number] : 1995 Provider: JAYJAY Roldan Age/Sex: 22/F Location: [facility] [place] Status: Signed Intake Vital Signs05/02/18 Height 5 ft 9 in 05/02/18 Weight: 260 lb 05/02/18 Body Mass Index (BMI) 38.4 05/02/18 Blood Pressure 120/80 Intake Visit Reasons: 32 week ob Chief Complaint: est ob Director Of Corporate Responsibility Required: No Is patient in pain?: No Allergies No Known Allergies Allergy (Verified 05/02/18 11:44) Medications docosahexanoic acid 200 mg capsule mg PO 01/17/18 [History Confirmed 05/02/18] acetaminophen 500 mg tablet 500 mg PO Q6H PRN 03/14/18 [History Confirmed 05/02/18] Last Menstral Period: 09/18/17 Zika: Zika virus screening: Negative : No PFSH PFSH Medical History Gestational diabetes (Acute) Family History Grandmother Breast cancer Hypertension Skin cancer Mother Skin cancer Social History Smoking Status: Never smoker alcohol intake: never substance use type: does not use caffeine: Yes seatbelt use: always do you feel safe at home: Yes 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 DateName GA/Weeks Outcome Route Bth WeighInfant GeLabor LgtAnesthesiDel LocatProvider FOB t n h a n Delivery Date: 12/20/15 On 01/17/18 @ 12:07 Dara Swartz Gestational diabetes. Patient was induced at 39 weeks due to gestational diabetes. No other issues during or delivery. HPI 32 week ob: Details: DARA HOOKS is a 22 year old who presents for routine OB visit. OB Visit LELE Calculator Estimated Delivery Date 06/25/18 Based on LMP (certain) 09/18/17 Current WG 32w 2d Number 1 Expected Delivery Route/Plan Specific Issue/Plans flu vaccine: Declined minichart given: yes tdap vaccine: Given 04/04/2018 rhogam: [] LARC form signed: [] labor support person: Shima pain management: [] cut cord/dad catch: [] : [] PP control planned: [] special requests: [] Initial Weight: 250 lb Date Weight BP Urine PrFHR FuHt Pres MoCTX DilationFetal StVisit NoProviderComments E ot v te GA G Effac lucose ed Visit Notes Visit Date: 05/02/18 No VB, LOF. Doing well MARJORIE Gutierrez on 05/02/18 Visit Date: 04/18/18 no vb lof good fm no regular ctx Elisa Dumont MD on 04/18/18 Visit Date: 04/04/18 no vb lof good fm no ergular ctx Elisa Dumont MD on 04/04/18 Visit Date: 03/14/18 no vb lof good fm no regular ctx Elisa Dumont MD on 03/14/18 Visit Date: 02/11/18 no vb lof good fm no regular ctx Elisa Dumont MD on 02/19/18 Visit Date: 01/17/18 Has had off and on light vaginal bleeding and some discomfort. Prior OBGYN has not evaluated or done US thus reason for MOHAN MARJORIE Gutierrez on 01/17/18 Diagnostics Diagnostics Labs Blood Type B POSITIVE 04/04/18 Antibody Screen NEGATIVE 04/04/18 Hct 38.3 % (37-47) 04/04/18 Hgb 12.6 g/dl (12.0-15.0) 04/04/18 Pap Smear Negative 04/11/16 Obstetrics Ultrasound 04/04/18 Glucose 1 Hr 50 gm 109 mg/dL (70-140) 04/04/18 Details: HIV: Urine Culture: Sequential Screen: NIPT Screen: Results [email or web address] Office Urine Glucose Negative Last Edit by Angelina Hurtado on 05/02/18 11:51 Office Urine Protein Negative Last Edit by Angelina Hurtado on 05/02/18 11:51 Assessment AND Plan Problems 1. Encounter for supervision of other normal in second trimester Z34.82 EDC 06/25/18 Gr 3/ CARRI Peterson Spouse:Shima 2. 32 weeks gestation of Z3A.32 genetic and ntd screening declined. anatomy scan normal 3. Abnormal blood testing 12/11/17- preliminary positive HIV- retest was negative. obtain records from previous office. 4. History of gestational diabetes Z86.32 Plan Orders placed: none Still need PNL from [place] Reviewed of labor precautions, movement/kick counts ACOG trimester education reviewed and updated See problem list details for updated plan of care Gestational age appropriate handout given RTO: 2 weeks Orders Orders: Coding Level of Care Code OB Routine Diagnoses Encounter for supervision of other normal in second trimester Z34.82 Normal : other normal 32 weeks gestation of Z3A.32 Weeks of gestation: 32 weeks Abnormal blood testing History of gestational diabetes Z86.32 05/02/18 1225 <Electronically signed by Loni AMADOR> Date Loni AMADOR Cosigner Signature: Date (if applicable) CC: SOCIAL SERVICE LIAISON OFFICE VISIT Observed: 04/18/2018 Status: F Source: YOLA REPORT 12:13 PM [facility] [address] [place] [address] OFFICE VISIT Date of Service: 04/18/18 MR#: [id number] Acct: [id number] Name: DARA HOOKS Rep #: [id number] : 1995 Provider: Elisa Dumont MD Age/Sex: 22/F Location: [facility] [place] Status: Signed Intake Vital Signs04/18/18 Height 5 ft 9 in 04/18/18 Weight: 256 lb 04/18/18 Body Mass Index (BMI) 37.8 04/18/18 Blood Pressure 118/72 Intake Visit Reasons: 30 week ob Allergies No Known Allergies Allergy (Verified 04/04/18 10:10) Medications docosahexanoic acid 200 mg capsule mg PO 01/17/18 [History Confirmed 04/04/18] acetaminophen 500 mg tablet 500 mg PO Q6H PRN 03/14/18 [History Confirmed 04/04/18] Last Menstral Period: 09/18/17 PFSH PFSH Medical History Gestational diabetes (Acute) Family History Grandmother Breast cancer Hypertension Skin cancer Mother Skin cancer Social History Smoking Status: Never smoker alcohol intake: never substance use type: does not use caffeine: Yes seatbelt use: always do you feel safe at home: Yes 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 DateName GA/Weeks Outcome Route Bth WeighInfant GeLabor LgtAnesthesiDel LocatProvider FOB t n h a n Delivery Date: 12/20/15 On 01/17/18 @ 12:07 Dara Swartz Gestational diabetes. Patient was induced at 39 weeks due to gestational diabetes. No other issues during or delivery. HPI 30 week ob: Details: DARA HOOKS is a 22 year old who presents for routine OB visit. urine 2 dip glucose negative protein negative OB Visit LELE Calculator Estimated Delivery Date 06/25/18 Based on LMP (certain) 09/18/17 Current WG 30w 2d Number 1 Expected Delivery Route/Plan Specific Issue/Plans flu vaccine: Declined minichart given: yes tdap vaccine: Given 04/04/2018 rhogam: [] LARC form signed: [] labor support person: Shima pain management: [] cut cord/dad catch: [] : [] PP control planned: [] special requests: [] Initial Weight: 250 lb Date Weight BP Urine PrFHR FuHt Pres MoCTX DilationFetal StVisit NoProviderComments E ot v te GA G Effac lucose ed Visit Notes Visit Date: 04/18/18 no vb lof good fm no regular ctx Elisa Dumont MD on 04/18/18 Visit Date: 04/04/18 no vb lof good fm no ergular ctx Elisa Dumont MD on 04/04/18 Visit Date: 03/14/18 no vb lof good fm no regular ctx Elisa Dumont MD on 03/14/18 Visit Date: 02/11/18 no vb lof good fm no regular ctx Elisa Dumont MD on 02/19/18 Visit Date: 01/17/18 Has had off and on light vaginal bleeding and some discomfort. Prior OBGYN has not evaluated or done US thus reason for MOHAN MARJORIE Gutierrez on 01/17/18 Diagnostics Diagnostics Labs Blood Type B POSITIVE 04/04/18 Antibody Screen NEGATIVE 04/04/18 Hct 38.3 % (37-47) 04/04/18 Hgb 12.6 g/dl (12.0-15.0) 04/04/18 Pap Smear Negative 04/11/16 Obstetrics Ultrasound 04/04/18 Glucose 1 Hr 50 gm 109 mg/dL (70-140) 04/04/18 Details: HIV: Urine Culture: Sequential Screen: NIPT Screen: Assessment AND Plan Problems 1. History of gestational diabetes Z86.32 2. 30 weeks gestation of Z3A.30 genetic and ntd screening declined. anatomy scan normal 3. Encounter for supervision of other normal in second trimester Z34.82 EDC 06/25/18 Gr 08/15 CARRI Peterson Spouse:Shima Lyman movement and labor precautions reviewed. ACOG trimester education reviewed and updated. see problem list details for updated plan management information and see below for orders placed at this visit. GA appropriate handout given. Orders Orders: Coding Level of Care Code OB Routine Diagnoses History of gestational diabetes Z86.32 30 weeks gestation of Z3A.30 Weeks of gestation: 30 weeks Encounter for supervision of other normal in second trimester Z34.82 Normal : other normal 04/18/18 1213 <Electronically signed by Elisa Dumont MD> Date Elisa Dumont MD Cosigner Signature: Date (if applicable) CC: Observed: 04/04/2018 Status: F Source: YOLA CULTURE, URINE 9:12 PM [facility] REPOSITORY Urine Culture ORGANISM 1: Mixed Gram Positive Organisms Berkley Count 11,000-25,000 MIX CULTURE Mixed contaminants. Submit a new specimen if indicated. Performed By: #### M100.0650 #### [facility] [address] [place], [address] SOCIAL SERVICE LIAISON OFFICE VISIT Observed: 04/04/2018 Status: F Source: MOXEE REPORT 10:36 AM [facility] REPOSITORY [facility] [address] [place] [address] OFFICE VISIT Date of Service: 04/04/18 MR#: [id number] Acct: [id number] Name: DARA HOOKS Rep #: [id number] : 1995 Provider: Elisa Dumont MD Age/Sex: 22/F Location: [facility] [place] Status: Signed Intake Vital Signs04/04/18 Height 5 ft 9 in 04/04/18 Weight: 254 lb 04/04/18 Body Mass Index (BMI) 37.5 04/04/18 Blood Pressure 102/62 Intake Visit Reasons: 28 weeks Director Of Corporate Responsibility Required: No Is patient in pain?: No Allergies No Known Allergies Allergy (Verified 04/04/18 10:10) Medications docosahexanoic acid 200 mg capsule mg PO 01/17/18 [History Confirmed 04/04/18] acetaminophen 500 mg tablet 500 mg PO Q6H PRN 03/14/18 [History Confirmed 04/04/18] Last Menstral Period: 09/18/17 Zika: Zika virus screening: Negative : No PFSH PFSH Medical History Gestational diabetes (Acute) Family History Grandmother Breast cancer Hypertension Skin cancer Mother Skin cancer Social History Smoking Status: Never smoker alcohol intake: never substance use type: does not use caffeine: Yes seatbelt use: always do you feel safe at home: Yes 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 DateName GA/Weeks Outcome Route Bth WeighInfant GeLabor LgtAnesthesiDel LocatProvider FOB t n h a n Delivery Date: 12/20/15 On 01/17/18 @ 12:07 Dara Swartz Gestational diabetes. Patient was induced at 39 weeks due to gestational diabetes. No other issues during or delivery. HPI 28 weeks: Details: DARA HOOKS is a 22 year old who presents for routine OB visit. OB Visit LELE Calculator Estimated Delivery Date 06/25/18 Based on LMP (certain) 09/18/17 Current WG 28w 2d Number 1 Expected Delivery Route/Plan Specific Issue/Plans flu vaccine: Declined minichart given: yes tdap vaccine: Given 04/04/2018 rhogam: [] LARC form signed: [] labor support person: Shima pain management: [] cut cord/dad catch: [] : [] PP control planned: [] special requests: [] Initial Weight: 250 lb Date Weight BP Urine PrFHR FuHt Pres MoCTX DilationFetal StVisit NoProviderComments E ot v te GA G Effac lucose ed Visit Notes Visit Date: 04/04/18 no vb lof good fm no ergular ctx Elisa Dumont MD on 04/04/18 Visit Date: 03/14/18 no vb lof good fm no regular ctx Elisa Dumont MD on 03/14/18 Visit Date: 02/11/18 no vb lof good fm no regular ctx Elisa Dumont MD on 02/19/18 Visit Date: 01/17/18 Has had off and on light vaginal bleeding and some discomfort. Prior OBGYN has not evaluated or done US thus reason for MOHAN MARJORIE Gutierrez on 01/17/18 Diagnostics Diagnostics Labs Blood Type Pending 04/04/18 Antibody Screen Pending 04/04/18 Hct 38.3 % (37-47) 04/04/18 Hgb 12.6 g/dl (12.0-15.0) 04/04/18 Obstetrics Ultrasound 04/04/18 Glucose 1 Hr 50 gm 109 mg/dL (70-140) 04/04/18 Details: HIV: Urine Culture: Sequential Screen: NIPT Screen: Results BMSUA Office Urine Color Yellow Last Edit by Cristina Troncoso on 04/04/18 10:23 [email or web address] Office Urine Glucose Negative Last Edit by Cristina Troncoso on 04/04/18 10:23 Office Urine Protein Negative Last Edit by Cristina Troncoso on 04/04/18 10:23 Immunizations Boostrix Tdap Performing Provider: Elisa Dumont MD Administered by: Cristina Troncoso on 04/04/18 10:26 Dose Route Admin Location Lot Number Expiration Date NDC Mastic Floor Layer 0.5 mL IM Right Deltoid [id number] 05/10/19 02729-120-07 [employer] VIS Given Date VIS Publication Date 04/04/18 08/11/14 Eligibility Eligibility Date Assessment AND Plan Problems 1. History of gestational diabetes Z86.32 2. 21 weeks gestation of Z3A.21 genetic and ntd screening declined. anatomy scan normal 3. Low lying placenta nos or without hemorrhage, second trimester O44.42 Repeat US 28 weeks 4. Encounter for supervision of other normal in second trimester Z34.82 EDC 06/25/18 Gr 08/15 CARRI Peterson Spouse:Shima 5. Rh negative status during in third trimester O09.893; Z67.91 patient thinks she is- await type and screen Plan movement and labor precautions reviewed. ACOG trimester education reviewed and updated. see problem list details for updated plan management information and see below for orders placed at this visit. GA appropriate handout given. Orders Orders: Medications Discontinued: Boostrix Tdap (diphth,pertus(ace0.5 mL IM ONCE #1 0RF NS M54.5, O26.899, Z23, Z34.90, Z86 ll),tetanus) Discontinued Marcellus .32 son: Office Medication has been Documented as given Coding Level of Care Code OB Routine Diagnoses History of gestational diabetes Z86.32 21 weeks gestation of Z3A.21 Weeks of gestation: 21 weeks Low lying placenta nos or without hemorrhage, second trimester O44.42 Encounter for supervision of other normal in second trimester Z34.82 Normal : other normal Rh negative status during in third trimester O09.893; Z67.91 Trimester: third trimester 04/04/18 1036 <Electronically signed by Elisa Dumont MD> Date Elisa Dumont MD Cosigner Signature: Date (if applicable) CC: CBC W/DIFF, AUTOMATED Collected: 04/04/2018 Status: F Source: YLOA 9:32 AM [facility] REPOSITORY TYPE CODE TESTS RESULT OUT OF RANGE REFERENCE UNITS LAB L100.1000 4.4-11.0 K/mm3 High WBC 15.1 LAB L100.1200 4.2-5.4 M/mm3 Normal RBC 4.43 LAB L100.1300 12.0-15.0 g/dl Normal HGB 12.6 LAB L100.1400 37-47 % Normal HCT 38.3 LAB L100.1500 81-99 fL Normal MCV 86.5 LAB L100.1600 27.0-32.0 pg Normal MCH 28.4 LAB L100.1700 32-36 g/gl Normal MCHC 32.9 LAB L100.1810 11.6-14.6 % Normal RDW CV 13.2 LAB L100.1820 35.1-43.9 fl Normal RDW SD 42.2 LAB L100.1900 150-450 K/mm3 Normal PLT 266 LAB L100.2000 6.2-12.0 fl Normal MPV 8.6 LAB L100.2100 47-70 % High NEUT% 82.0 LAB L100.2200 19-41 % Low LY% 11.9 LAB L100.2300 0-10 % Normal MONO% 5.0 LAB L100.2400 0-5 % Normal EO% 0.5 LAB L100.2500 0-1 % Normal BASO% 0.1 LAB L100.2550 0.0-0.9 % Normal IM GRAN % 0.500 Result Comment: IG% - Immature Granulocytes (promyelocytes, myelocytes and metamyelocytes) > 1% indicates that a LEFT SHIFT is Present. LAB L100.2620 2.0-7.7 X10 3/uL High Absolute Neut 12.3 LAB L100.2720 0.83-4.51 X10 3/ul Normal Absolute Lymph 1.79 Performed By: #### L100.0100, L501.0250, B101.7450 #### [facility] [address] [place], [address] GLUCOSE CHALLENGE GEST Collected: 04/04/2018 Status: F Source: MOXEE 1H 50G 9:32 AM [facility] REPOSITORY TYPE CODE TESTS RESULT OUT OF RANGE REFERENCE UNITS LAB L501.0250 70-140 mg/dL Normal GLU GEST 109 50g 1H Performed By: #### L100.0100, L501.0250, B101.7450 #### [facility] [address] [facility] [place], [address] TYPE AND SCREEN Collected: 04/04/2018 Status: F Source: MOXEE 9:32 AM [facility] REPOSITORY Order Comment: Reason for Type AND Screen/Red Cells: TYPE CODE TESTS RESULT OUT OF RANGE REFERENCE UNITS LAB B10.0800 B Normal BLOOD TYPE GEL POSITIVE LAB B100.4000 Normal Antibody NEGATIVE Screen Performed By: #### L100.0100, L501.0250, B101.7450 #### [facility] [address] [place], [address] OB LIMITED WITH Observed: 04/04/2018 Status: F Source: MOXEE BIOMETRICS 7:53 AM [facility] REPOSITORY [facility] Imaging Services [address] [place] [address] OB Limited With Biometrics MR#: [id number] Acct: [id number] Name: DARA HOOKS Reynaldo Rep #: [id number] : 1995 F 22 From: Kris Rodriguez DO PCP: Care Physician, No Primary Status: REG CLI Study: OB Limited With Biometrics Date of Exam: 04/04/18 Exam# [id number] Ordering Dr: Elisa Dumont MD STUDY: SECOND AND THIRD TRIMESTER OBSTETRICAL ULTRASOUND - LIMITED REASON FOR EXAM: Female, 22 years old. Gross. History of low-lying placenta. LMP: September 18, 2017. PRIOR ULTRASOUND: January 22, 2018. TECHNIQUE: Transabdominal # of Images: 73 TECHNICAL QUALITY: Adequate. FINDINGS: There is a single intrauterine fetus. The fetus is in a cephalic presentation. There is demonstrated cardiac activity with a heart rate of 60 bpm. There is a normal amniotic fluid volume. The largest amniotic fluid pocket measures 3.8 to cm. The amniotic fluid index (NICOLE) is 13.23 cm. The placenta is anterior in location and is not low lying. There are Grade 1 placental changes. The cervix measures 3.1 cm cm in length. BIOMETRY: BPD: 7.24 cm: 29 weeks, 1 days HC: 26.98 cm: 29 weeks, 3 days AC: 24.65 cm: 29 weeks, 0 days FL: 5.47 cm: 29 weeks, 0 days Age by LMP: 28 weeks, 2 days. LELE by LMP: 2018.. age by prior US: 28 weeks, 6 days. LELE by prior US: June 21, 2018. age by current US: 29 weeks, 1 days. LELE by current US: June 19, 2089. Estimated weight: 131, grams, +/- 191 grams, 63 percentile. A four-chamber view of the normal heart was obtained. US/OB Limited With Biometrics IMPRESSION: 1. Live single uterine at 29 weeks, 1 day. LELE is June 19, 2018. There is adequate interval growth since the prior study. 2. EFW 1311 g. 3. NICOLE is 13.23 cm. 4. Anterior grade 1 placenta. 5. Normal four-chamber view of the heart. Electronically Signed: Kris Rodriguez DO at 8:07 EDT Tel [phone], Service support , CC: No Primary Care Physician; Elisa Dumont MD House Mother: Signed SOCIAL SERVICE LIAISON OFFICE VISIT Observed: 03/14/2018 Status: F Source: YOLA REPORT 12:29 PM [facility] REPOSITORY [facility] [address] [place] [address] OFFICE VISIT Date of Service: 03/14/18 MR#: [id number] Acct: [id number] Name: DARA HOOKS Rep #: [id number] : 1995 Provider: Elisa Dumont MD Age/Sex: 22/F Location: [facility] [place] Status: Signed Intake Vital Signs03/14/18 Height 5 ft 9 in 03/14/18 Weight: 251 lb 6 oz 03/14/18 Body Mass Index (BMI) 37.0 03/14/18 Blood Pressure 116/72 Intake Visit Reasons: 25 weeks Director Of Corporate Responsibility Required: No Is patient in pain?: No Allergies No Known Allergies Allergy (Verified 03/14/18 12:12) Medications docosahexanoic acid 200 mg capsule mg PO 01/17/18 [History Confirmed 03/14/18] acetaminophen 500 mg tablet 500 mg PO Q6H PRN 03/14/18 [History Confirmed 03/14/18] Last Menstral Period: 09/18/17 Zika: Zika virus screening: Negative : No PFSH PFSH Medical History Gestational diabetes (Acute) Family History Grandmother Breast cancer Hypertension Skin cancer Mother Skin cancer Social History Smoking Status: Never smoker alcohol intake: never substance use type: does not use caffeine: Yes seatbelt use: always do you feel safe at home: Yes 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 DateName GA/Weeks Outcome Route Bth WeighInfant GeLabor LgtAnesthesiDel LocatProvider FOB t n h a n Delivery Date: 12/20/15 On 01/17/18 @ 12:07 Dara Swartz Gestational diabetes. Patient was induced at 39 weeks due to gestational diabetes. No other issues during or delivery. HPI 25 weeks: Details: DARA HOOKS is a 22 year old who presents for routine OB visit. OB Visit LELE Calculator Estimated Delivery Date 06/25/18 Based on LMP (certain) 09/18/17 Current WG 25w 2d Number 1 Expected Delivery Route/Plan Specific Issue/Plans flu vaccine: [] minichart given: [] tdap vaccine: [] rhogam: [] LARC form signed: [] labor support person: Shima pain management: [] cut cord/dad catch: [] : [] PP control planned: [] special requests: [] Initial Weight: 250 lb Date Weight BP Urine PrFHR FuHt Pres MoCTX DilationFetal StVisit NoProviderComments E ot v te GA G Effac lucose ed Visit Notes Visit Date: 03/14/18 no vb lof good fm no regular ctx Elisa Dumont MD on 03/14/18 Visit Date: 02/11/18 no vb lof good fm no regular ctx Elisa Dumont MD on 02/19/18 Visit Date: 01/17/18 Has had off and on light vaginal bleeding and some discomfort. Prior OBGYN has not evaluated or done US thus reason for MOHAN MARJORIE Gutierrez on 01/17/18 Diagnostics Diagnostics Labs Obstetrics Ultrasound 01/22/18 Details: HIV: Urine Culture: Sequential Screen: NIPT Screen: Results [email or web address] Office Urine Glucose Negative Last Edit by Cristina Troncoso on 03/14/18 12:24 Office Urine Protein Negative Last Edit by Cristina Troncoso on 03/14/18 12:24 Assessment AND Plan Problems 1. History of gestational diabetes Z86.32 2. 21 weeks gestation of Z3A.21 genetic and ntd screening declined. anatomy scan normal 3. Low lying placenta nos or without hemorrhage, second trimester O44.42 Repeat US 28 weeks 4. Encounter for supervision of other normal in second trimester Z34.82 EDC 06/25/18 Gr 3/ CARRI Peterson Spouse:Shima Lyman movement and labor precautions reviewed. ACOG trimester education reviewed and updated. see problem list details for updated plan management information and see below for orders placed at this visit. GA appropriate handout given. Orders Orders: Coding Level of Care Code OB Routine Diagnoses History of gestational diabetes Z86.32 21 weeks gestation of Z3A.21 Weeks of gestation: 21 weeks Low lying placenta nos or without hemorrhage, second trimester O44.42 Encounter for supervision of other normal in second trimester Z34.82 Normal : other normal 03/14/18 1229 <Electronically signed by Elisa Dumont MD> Date Elisa Dumont MD Cosigner Signature: Date (if applicable) CC: SOCIAL SERVICE LIAISON OFFICE VISIT Observed: 02/19/2018 Status: F Source: MOXEE REPORT 5:44 AM [facility] [address] [place] [address] OFFICE VISIT Date of Service: 02/11/18 MR#: [id number] Acct: [id number] Name: DARA HOOKS Rep #: [id number] : 1995 Provider: Elisa Dumont MD Age/Sex: 22/F Location: [facility] [place] Status: Signed Intake Vital Signs02/11/18 Height 5 ft 9 in 02/11/18 Weight: 251 lb 6 oz 02/11/18 Body Mass Index (BMI) 37.0 02/11/18 Blood Pressure 118/82 Intake Visit Reasons: 21 weeks Director Of Corporate Responsibility Required: No Is patient in pain?: No Allergies No Known Allergies Allergy (Verified 02/11/18 16:35) Medications docosahexanoic acid 200 mg capsule mg PO 01/17/18 [History Confirmed 02/11/18] Last Menstral Period: 09/18/17 PFSH PFSH Medical History Gestational diabetes (Acute) Family History Grandmother Breast cancer Hypertension Skin cancer Mother Skin cancer Social History Smoking Status: Never smoker alcohol intake: never substance use type: does not use caffeine: Yes seatbelt use: always do you feel safe at home: Yes 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 DateName GA/Weeks Outcome Route Bth WeighInfant GeLabor LgtAnesthesiDel LocatProvider FOB t n h a n Delivery Date: 12/20/15 On 01/17/18 @ 12:07 Dara Swartz Gestational diabetes. Patient was induced at 39 weeks due to gestational diabetes. No other issues during or delivery. HPI 21 weeks: Details: DARA HOOKS is a 22 year old who presents for routine OB visit. OB Visit LELE Calculator Estimated Delivery Date 06/25/18 Based on LMP (certain) 09/18/17 Current WG 22w 0d Number 1 Expected Delivery Route/Plan Specific Issue/Plans flu vaccine: [] minichart given: [] tdap vaccine: [] rhogam: [] LARC form signed: [] labor support person: Shima pain management: [] cut cord/dad catch: [] : [] PP control planned: [] special requests: [] Initial Weight: 250 lb Date Weight BP Urine PrFHR FuHt Pres MoCTX DilationFetal StVisit NoProviderComments E ot v te GA G Effac lucose ed Visit Notes Visit Date: 02/11/18 no vb lof good fm no regular ctx Elisa Dumont MD on 02/19/18 Visit Date: 01/17/18 Has had off and on light vaginal bleeding and some discomfort. Prior OBGYN has not evaluated or done US thus reason for MOHAN MARJORIE Gutierrez on 01/17/18 Diagnostics Diagnostics Labs Obstetrics Ultrasound 01/22/18 Details: HIV: Urine Culture: Sequential Screen: NIPT Screen: Results BMSUA2 Office Urine Glucose Negative Last Edit by Juju Clayton on 02/11/18 16:31 Office Urine Protein Negative Last Edit by Juju Clayton on 02/11/18 16:31 Assessment AND Plan Problems 1. History of gestational diabetes Z86.32 2. Encounter for supervision of other normal in second trimester Z34.82 EDC 06/25/18 Gr 08/15 CARRI Peterson Spouse:Shima 3. Low lying placenta nos or without hemorrhage, second trimester O44.42 Repeat US 28 weeks 4. 21 weeks gestation of Z3A.21 genetic and ntd screening declined. anatomy scan normal Plan ACOG trimester education reviewed and updated. see problem list details for updated plan management information and see below for orders placed at this visit. GA appropriate handout given. Orders Orders: Coding Level of Care Code OB Routine Diagnoses History of gestational diabetes Z86.32 Encounter for supervision of other normal in second trimester Z34.82 Normal : other normal Low lying placenta nos or without hemorrhage, second trimester O44.42 21 weeks gestation of Z3A.21 Weeks of gestation: 21 weeks 02/19/18 0544 <Electronically signed by Elisa Dumont MD> Date Elisa Dumont MD Cosigner Signature: Date (if applicable) CC: OB ANATOMY SCAN Observed: 01/22/2018 Status: F Source: MOXEE 1:57 PM [facility] REPOSITORY [facility] Imaging Services [address] [place] [address] OB Anatomy Scan MR#: [id number] Acct: [id number] Name: DARA HOOKS Rep #: [id number] : 1995 F 22 From: Cristobal Chan MD PCP: Care Physician, No Primary Status: REG CLI Study: OB Anatomy Scan Date of Exam: 01/22/18 Exam# [id number] Ordering Dr: Loni Roldan MUSICAL [employer]ING MAKER-C ADDENDUM by Cristobal Chan MD on 01/24/18 at 0636 US/OB Anatomy Scan 01/24/18 0643 Date cc: JAYJAY Roldan; No Primary Care Physician * Signed ADDENDUM by Cristobal Chan MD on 01/24/18 at 0636 ADDENDUM The placenta is low lying and approximately 1.4 cm from the internal os Electronically Signed: Cristobal Chan, at 6:36 EDT Tel , Service support , 01/24/18 0636 Date cc: JAYJAY Roldan; No Primary Care Physician * Signed STUDY: SECOND AND THIRD TRIMESTER OBSTETRICAL ULTRASOUND REASON FOR EXAM: Female, 22 years old. Bleeding LMP: TECHNIQUE: Transabdominal PRIOR ULTRASOUND: None. FINDINGS: There is a single intrauterine fetus. The fetus is in a transverse lie with the head to the maternal right. There is demonstrated cardiac activity with a heart rate of 149 bpm. There is a normal amniotic fluid volume. The largest amniotic fluid pocket measures 4.2 x 4.4 cm. The amniotic fluid index (NICOLE) is normal The placenta is posterior and low lying. Is 1.4 cm from the internal os. There are Grade 0 placental changes. The cervix measures in length. The bilateral adnexal regions are normal. BIOMETRY: BPD: 4.0 cm : 18 weeks, 7 days HC: 14.9 cm: 18 weeks, 1 days AC: 12.6 cm: 18 weeks, 2 days FL: 3.1 cm: 19 weeks, 4 days CI: 0.81 FL/BPD: 0.76 FL/HC: FL/AC: 0.24 HC/AC: 1.19 age by current US: 18 weeks, 4 days. LELE by current US: 06/21/2018. Estimated weight: 252 grams, +/- 37 grams, 85 %. Age by LMP: 18 weeks, 0 days. LELE by LMP: 2018. ANATOMY: Gender: Cranium: Normal lateral ventricles. Normal choroid plexus. Normal cerebellum. Normal cisterna magna. Normal face, nose and lips. Chest: 4 chambered heart not visualized because of position. Abdomen/Pelvis: Normal diaphragm. Normal stomach. Normal abdominal wall. Normal cord insertion. Normal 3 vessel cord. Normal kidneys. Normal bladder. Spine: Normal cervical spine. Normal thoracic spine. Normal lumbar spine. Normal sacrum. Extremities: Normal bilateral upper extremities. Normal bilateral lower extremities. IMPRESSION: Intrauterine with fetus in a transverse lie with the head to the maternal right. Composite measurements average out to be equivalent to 18 weeks 4 days +/- 5 days with an expected date of delivery of 06/21/2018. Estimated weight of 25 2 g +/- 3 7 g. This is in the 85th percentile Electronically Signed: [place] YusravivianBrandon, at 7:34 EDT Tel , Service support , US/OB Anatomy Scan CC: JAYJAY Roldan; No Primary Care Physician House Mother: Signed Observed: 01/17/2018 Status: F Source: YOLA CULTURE, URINE 4:59 PM [facility] REPOSITORY Urine Culture Below infection level. Possible skin contamination. ORGANISM 1: Mixed Gram Positive Organisms Berkley Count 1000-10,000 Performed By: #### M100.0650 #### [facility] [address] [place], [address] SOCIAL SERVICE LIAISON OFFICE VISIT Observed: 01/17/2018 Status: F Source: YOLA REPORT 12:33 PM [facility] REPOSITORY [facility] [address] [place] [address] OFFICE VISIT Date of Service: 01/17/18 MR#: [id number] Acct: [id number] Name: DARA HOOKS Rep #: [id number] : 1995 Provider: JAYJAY Roldan Age/Sex: 22/F Location: 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 Required: No Accompanied by: Allergies No Known Allergies Allergy (Verified 01/17/18 12:03) Medications docosahexanoic acid 200 mg capsule mg PO 01/17/18 [History Confirmed 01/17/18] Last Menstral Period: 09/18/17 : No PFSH PFSH Medical History Gestational diabetes (Acute) Family History Grandmother Breast cancer Hypertension Skin cancer Mother Skin cancer Social History Smoking Status: Never smoker alcohol intake: never substance use type: does not use caffeine: Yes seatbelt use: always do you feel safe at home: Yes additional social history: 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 DateName GA/Weeks Outcome Route Bth WeighInfant GeLabor LgtAnesthesiDel LocatProvider FOB t n h a n Delivery Date: 12/20/15 On 01/17/18 @ 12:07 Dara Swartz Gestational diabetes. Patient was induced at 39 weeks due to gestational diabetes. No other issues during or delivery. HPI 16 week OB: Details: DARA HOOKS is a 22 year old who presents for routine OB visit. First visit:MOHAN from Dr. Chester/Peewee at 17 weeks OB Visit LELE Calculator Estimated Delivery Date 06/25/18 Based on LMP (certain) 09/18/17 Current WG 17w 2d Number 1 Expected Delivery Route/Plan Specific Issue/Plans flu vaccine: [] minichart given: [] tdap vaccine: [] rhogam: [] LARC form signed: [] labor support person: Shima pain management: [] cut cord/dad catch: [] : [] PP control planned: [] special requests: [] Initial Weight: 250 lb Date Weight BP Urine PFHR FuHt Pres MCTX DilatioFetal SVisit NProvideComment rot ov n t ote r s EGA Ef Gluco faced se 01/17/1247 lb 118/83 Lyhasux961 Has had 8 (-3 lb) e off an 17 d on li w 2d Negati ght vag ve inal bl eeding and osvaldo e disco mfort. Prior O BGYN castorena s not e valuate d or do ne US t hus marcellus son for MOHAN Visit Notes Visit Date: 01/17/18 Has had off and on light vaginal bleeding and some discomfort. Prior OBGYN has not evaluated or done US thus reason for MOHAN MARJORIE Gutierrez on 01/17/18 Diagnostics Diagnostics Details: HIV: Urine Culture: Sequential Screen: NIPT Screen: Results BMSUA2 Office Urine Glucose Negative Last Edit by Dara Swartz on 01/17/18 12:13 Office Urine Protein Negative Last Edit by Dara Swartz on 01/17/18 12:13 Assessment AND Plan Problems 1. Encounter for supervision of other normal in second trimester Z34.82 EDC 06/25/18 Gr 3/ CARRI Peterson Spouse:Shima 2. History of gestational diabetes Z86.32 3. 17 weeks gestation of Z3A.17 Plan Orders placed: US for bleeding and also attempt anatomy next week She prefers to check blood sugars rather then do early GCT. She will do FBS and 2 hr pp each meal X 7 days and call results. Records release Reviewed of labor precautions, movement/kick counts ACOG trimester education reviewed and updated See problem list details for updated plan of care Gestational age appropriate handout given RTO: 4 weeks Orders Orders: Coding Level of Care Code Off vis,new,level 4 Diagnoses Encounter for supervision of other normal in second trimester Z34.82 Normal : other normal History of gestational diabetes Z86.32 17 weeks gestation of Z3A.17 01/17/18 1233 <Electronically signed by Loni AMADOR> Date Loni AMADOR Cosigner Signature: Date (if applicable) CC: LAB MISCELLANEOUS Collected: 12/30/2017 Status: F Source: GNOSTICIST 5:50 PM [facility] REPOSITORY TYPE CODE TESTS RESULT OUT OF RANGE REFERENCE UNITS LAB 40315830(LO INC) Normal Test Name HIV Confirm LAB 34245947(LO INC) Normal Status See Ref Lab Report Performed By: #### [id number] #### ZAFAR Send Outs Subsection [facility] [address] CHLAMYDIA GC BY PCR Collected: 12/11/2017 Status: F Source: GNOSTICIST 2:01 PM [facility] REPOSITORY TYPE CODE TESTS RESULT OUT OF RANGE REFERENCE UNITS LAB 959581543( Not Detected LOINC) Normal Chlamydia by Not Detected PCR. Result Comment: Xpert CT/NG Assay performance has not been evaluated in patients less than 14 years of age. LAB [id number](LOINC) Not Detected Normal Gonorrhoeae by Not Detected PCR Result Comment: Xpert CT/NG Assay performance has not been evaluated in patients less than 14 years of age. Performed By: #### [id number] #### ZAFAR Misc Micro SubSection , Observed: 12/11/2017 Status: F Source: GNOSTICIST C URINE 2:01 PM [facility] REPOSITORY Final Report: Rare Normal skin tim isolated Performed By: #### [id number] #### ZAFAR Microbiology Subsection [address] [place] [address] CBC W/ AUTO DIFF Collected: 12/11/2017 Status: F Source: GNOSTICIST 10:12 AM [facility] REPOSITORY TYPE CODE TESTS RESULT OUT OF RANGE REFERENCE UNITS LAB [id number](L 3.6-11.0 E3/mcL OINC) Normal WBC 10.2 LAB 28944442(L 3.90-5.40 E6/mcL OINC) Normal RBC 4.93 LAB 25204466(L 12.0-16.0 G/DL OINC) Normal Hgb 13.8 LAB 32874899(L 36.0-48.0 % OINC) Normal Hct 40.7 LAB 13661934(L 11.5-14.5 % OINC) Normal RDW 14.4 LAB 00163927(L 27.0-31.0 pg OINC) Normal MCH 27.9 LAB 23377055(L 33.0-37.0 G/DL OINC) Normal MCHC 33.8 LAB 61945231(L 78.0-100.0 fL OINC) Normal MCV 82.6 LAB 20606241(L 7.4-11.0 fL OINC) Low MPV 6.8 LAB 35787595(L 130-400 E3/mcL OINC) Normal Platelet 281 Performed By: #### [id number] #### ZAFAR RemHemo [address] [place] [address] AUTO DIFF Collected: 12/11/2017 Status: F Source: GNOSTICIST 10:12 AM [facility] REPOSITORY Order Comment: Order Added by Discern Expert. TYPE CODE TESTS RESULT OUT OF RANGE REFERENCE UNITS LAB 88158610(L 37.0-75.0 % OINC) High Neutro Auto 76.0 LAB 58406789(L 20.0-55.0 % OINC) Low Lymph Auto 18.0 LAB 98864535(L 0.0-10.0 % OINC) Normal [place] Auto 5.1 LAB 70034978(L 0.0-11.0 % OINC) Normal Eos Auto 0.2 LAB 81244727(L 0.0-2.0 % OINC) Normal Basophil Auto 0.7 LAB 51136090(L 1.4-6.5 E3/mcL OINC) High Neutro 7.8 Absolute LAB 70939951(L 1.2-3.4 E3/mcL OINC) Normal Lymph Absolute 1.8 LAB 37219266(L 0.0-0.7 E3/mcL OINC) Normal [place] Absolute 0.5 LAB 49185567(L 0.0-0.7 E3/mcL OINC) Normal Eos Absolute 0.0 LAB 34703524(L 0.0-0.2 E3/mcL OINC) Normal Basophil 0.1 Absolute Performed By: #### [id number] #### ZAFAR RemHemo [address] [place], [place] [id number] RUBELLA IGG LVL Collected: 12/11/2017 Status: F Source: GNOSTICIST 10:12 AM [facility] REPOSITORY TYPE CODE TESTS RESULT OUT OF RANGE REFERENCE UNITS LAB [id number](LO Internation INC) al_Unit/mL Normal Rubella IgG 25.8 Lvl (POS) Result Comment: <10IU/ml NON REACTIVE: NOT IMMUNE 10-15 IU/ml RUBELLA SPECIFIC AB PRESENT, EVALUATE FURTHER TO DETERMINE IMMUNE STATUS >15 IU/ml REACTIVE, IMMUNE Performed By: #### [id number] #### ZAFAR Datalink [address] [place] [address] HIV-1/2 AG/AB Collected: 12/11/2017 Status: F Source: GNOSTICIST 10:12 AM [facility] REPOSITORY TYPE CODE TESTS RESULT OUT OF RANGE REFERENCE UNITS LAB 870231993( Non-Reactive LOINC) PRELIMINARY Abnormal POSITIVE FOR HIV-1/2 HIV-1 and/or Ag/Ab HIV-2 Antibodies Result Comment: Preliminary result. Result needs confirmed by redrawing patient for a confirmation test. Performed By: #### [id number] #### ZAFAR Chemistry Manual Subsection [address] [place] [address] ANTIBODY SCREEN Collected: 12/11/2017 Status: F Source: GNOSTICIST CAP... 10:12 AM [facility] REPOSITORY TYPE CODE TESTS RESULT OUT OF RANGE REFERENCE UNITS LAB 95574162(L OINC) Normal Screen Negative Interp... Performed By: #### [id number] #### ZAFAR Blood Bank Subsection [address] [place] [address] ABO/RH ECHO Collected: 12/11/2017 Status: F Source: GNOSTICIST 10:12 AM [facility] REPOSITORY TYPE CODE TESTS RESULT OUT OF RANGE REFERENCE UNITS LAB 73581731(LO INC) ABO/Rh E B POS Interp... Performed By: #### [id number] #### ZAFAR Blood Bank Subsection [address] [place] [address] HEP BS AG Collected: 12/11/2017 Status: F Source: GNOSTICIST 10:12 AM [facility] REPOSITORY TYPE CODE TESTS RESULT OUT OF RANGE REFERENCE UNITS LAB 83364445(LO Negative INC) Normal Hep Negative Bs Ag Result Comment: Performed At: [facility] [id number] Stone Núñez PhD Ph:[phone] Performed By: #### [id number] #### ZAFAR Send Outs Subsection [facility] [place] [address] RPR Collected: 12/11/2017 Status: F Source: GNOSTICIST 10:12 AM [facility] REPOSITORY TYPE CODE TESTS RESULT OUT OF RANGE REFERENCE UNITS LAB 58079526(LO Non-Reactive INC) Normal RPR Ql Non-Reactive Result Comment: Testing perfomed at [facility] Performed By: #### [id number] #### ZAFAR Chemistry Manual Subsection [address] [place] [address] ALLERGIES ALLERGIES DATE TYPE / CODE NAME / CODE REACTION SEVERITY SOURCE 06/13/2018 Drug No Known Unknown [facility] Allergy/416 Allergies/M19068 Hospital 492865(SNOM 0388(RXNORM) Repository ED CT) Drug NO KNOWN [facility] Three Class/14924 ALLERGIES Repository 1003(SNOMED CT) Drug/771720 No Known [place] 003(SNOMED Allergies [facility] CT) System Repository ENCOUNTERS ENCOUNTERS ADMIT/DISCHARGE ACCOUNT NUMBER ADMITTING ENCOUNTER LOCATION SOURCE CLASS 2018 [id number] Julia Ambulatory Yolaatiya Pérez [facility] ding:WP Repository 06/18/2018 [id number] Ambulatory Building:[facility] Repository 06/18/2018 [id number] Ambulatory Building:[facility] Three Repository 06/15/2018/06/17/19 [id number] Julia Inpatient Yolaatiya Pérez Encounter [facility] ding:WPRoom: Repository QW838Jmd: 1 06/15/2018 [id number] Julia Ambulatory BMSBuilding: Yolaatiya Turneron BMS.CF.[facility] Hospital Repository 06/15/2018 [id number] Edwin Dumont BMSBuilding: Yola Elisa BMS.CF.[facility] Repository 06/13/2018/06/13/20 [id number] Ambulatory BMSBuilding: [place] 18 BMS.[facility] Repository 06/06/2018/06/06/20 [id number] Ambulatory BMSBuilding: Yola 18 BMS.[facility] Repository 05/26/2018 [id number] Ambulatory [facility] Hospital ding:[facility] Repository 05/26/2018/05/26/20 [id number] Ambulatory BMSBuilding: [place] 18 BMS.[facility] Repository 05/16/2018/05/16/20 [id number] Ambulatory BMSBuilding: [place] 18 BMS.[facility] Repository 05/02/2018/05/02/20 [id number] Ambulatory BMSBuilding: [place] 18 BMS.[facility] Repository 04/18/2018/04/18/20 [id number] Ambulatory BMSBuilding: [place] 18 BMS.[facility] Repository 04/08/2018 [id number] Ambulatory Building:[facility] Repository 04/04/2018 [id number] Ambulatory [facility] ding:[facility]SPEC Repository 04/04/2018/04/04/20 [id number] Ambulatory BMSBuilding: Yola 18 BMS.[facility] Repository 04/04/2018 [id number] Ambulatory [facility] Hospital ding:PAVLAB Repository 03/14/2018/03/14/20 [id number] Ambulatory BMSBuilding: [place] 18 BMS.[facility] Repository 02/11/2018/02/12/20 [id number] Ambulatory BMSBuilding: Yola 18 BMS.[facility] Repository 02/07/2018/02/08/20 [id number] Ambulatory [address] Health System :[facility] Repository 01/22/2018 [id number] Ambulatory [facility] Hospital ding:US Repository 01/20/2018 [id number] Ambulatory Building:[facility] Repository 01/17/2018 [id number] Ambulatory [facility] Hospital ding:LABSPEC Repository 01/17/2018/01/18/20 [id number] Ambulatory BMSBuilding: Yola 18 BMS.[facility] Repository 01/08/2018/01/09/20 [id number] Ambulatory [address] Health System :[facility] Repository 01/06/2018/01/07/[id number] Health System :[facility] Repository om: Room 6 01/01/2018 [id number] Ambulatory BMSBuilding: [place] BMS.[facility] Repository 12/30/2017/12/31/[id number] ding:[facility] Repository 12/30/2017 [id number] Ambulatory [address] [place] [address] Repository 12/11/2017 [id number] [facility]ulatory [facility] Repository 12/11/2017/12/12/[id number] ding:.[facility] Repository 12/11/2017/12/12/[id number] System :[facility] Repository om: Room 5 12/11/2017 [id number] Ambulatory [address] [place] [address] Repository 11/15/2017/11/16/[id number] Health System :[facility] Repository om: Procedure PAYERS PAYERS ENCOUNTER GUARANTOR PAYER SUBSCRIBER SOURCE 2018 DARA Jacobs Primary DARA Aceves [id number] Insurance:ANTHEMPolic REYNOLDSDOB: [facility]ly [facility] y Number: [id number] [id number] Repository [address]Qbo: [address] Date:2772-96-22QM [address] ) [address], [place] [address]QK: 2018 Secondary NOT GIVENUNK Yola Insurance:SELF PAY [facility] Number: Effective Repository Date:2018-06-06 06/18/2018 [facility] [place] REYNOLDSDOB: Insurance:HENDRIX REYNOLDSDOB: Three Repository MANAGED [id number] [place] MEDICAIDPolicy [address] [place], [place] Number: [place], [place] [address]Sfc: (067) [id number] [phone] (HP) Date:3057-64-09XY [address] [place] [phone]: 06/18/2018 [facility] [place] REYNOLDSDOB: Insurance:HENDRIX REYNOLDSDOB: Three Repository MANAGED [id number] [place] MEDICAIDPolicy [address] [place], [place] Number: [place], [place] [address]Igy: [phone] [id number] () Date:6136-92-17SM [address] [place] [address]ZO: 06/15/2018 [facility] Yola [id number] Insurance:ANTHEMPolic REYNOLDSDOB: [facility] y Number: [id number] [place] [id number] Repository [address]Jjd: 419) Date:7749-18-25CY [address] () [address]387[address]O[place]WHFL, [place] [address]XY: 06/15/2018 Secondary DARAPING RAMIREZ Yola Insurance:MEDICAIDPol REYNOLDSDOB: Community icy Number: [id number] Hospital [id number] Repository Date:2018-06-15 06/15/2018 Tertiary NOT GIVENUNK [place] Insurance:SELF PAY [facility] Number: Effective Repository Date:2018-06-15 06/15/2018 [facility] [place] [id number] Insurance:ANTHEMPolic REYNOLDSDOB: [facility] PAGE y Number: [id number], [place] [id number] Repository [address]Nfc: ([phone]) Date:4572-94-04IO [address] () [address]IFBHTNF, [place] [address]JJ: 06/15/2018 Secondary DARA RAMIREZ [place] Insurance:MEDICAIDPol REYNOLDSDOB: Community icy Number: [id number] Hospital [id number] Repository Date:2018-06-15 06/15/2018 Tertiary NOT GIVENUNK [place] Insurance:SELF PAY [facility] Number: Effective Repository Date:2018-06-15 06/15/2018 DARA RAMIREZ Primary DARA RAMIREZ [place] [id number] Insurance:ANTHEMPolic REYNOLDSDOB: [facility] PAGE y Number: [id number], [place] [id number] Repository [address]Qzz: ([phone]) Date:1084-33-84LD [address] () [address]74[address]BMXRMOY, [place] [address]MQ: 06/15/2018 Secondary DARA RAMIREZ [place] Insurance:MEDICAIDPol REYNOLDSDOB: Community icy Number: [id number] Hospital [id number] Repository Date:2018-06-15 06/15/2018 Tertiary NOT GIVENUNK [place] Insurance:SELF PAY [facility] Number: Effective Repository Date:2018-06-15 06/13/2018 DARA K Primary DARA Jacobs [place] [id number] Insurance:ANTHEMPolic REYNOLDSDOB: [facility] PAGE y Number: [id number], [place] [id number] Repository [address]Ymc: ([phone]) Date:1302-60-03KK [address] () 525[address]NCYCRRF, [place] [address]MG: 06/13/2018 Secondary DARA Jacobs [place] Insurance:MEDICAIDPol REYNOLDSDOB: Community icy Number: [id number] Hospital [id number] Repository Date:2018-03-14 06/13/2018 Tertiary NOT GIVENUNK [place] Insurance:SELF PAY [facility] INS[facility]ANCE[facility] Number: Effective Repository Date:2018-06-13 06/06/2018 DARA Jacobs Primary DARA Jacobs [place] [id number] Insurance:ANTHEMPolic REYNOLDSDOB: Community [place] y Number: [id number], [place] [id number] Repository [address]Bhy: ([phone]) Date:9846-34-67LY [address] () [address]65[address]ZJYENU, [place] [address]RP: 06/06/2018 Secondary NOT GIVENUNK [place] Insurance:SELF PAY [facility] Number: Effective Repository Date:2018-06-05 05/26/2018 DARA K Primary DARA Jacobs [place] [id number] Insurance:ANTHEMPolic REYNOLDSDOB: Community PAGE y Number: [id number], [place] [id number] Repository [address]Cfa: ([phone]) Date:0223-90-71KJ [address] () [address]24[address]PLNNKGQ, [place] [address]ML: 05/26/2018 Secondary NOT GIVENUNK [place] Insurance:SELF PAY [facility] Number: Effective Repository Date:2018-05-26 05/26/2018 DARA Jacobs Primary DARA Jacobs [place] [id number] Insurance:ANTHEMPolic REYNOLDSDOB: Community [place] y Number: [id number], [place] [id number] Repository [address]Brc: (419) Date:7877-74-07BN [address] () 567[address]WAYMAAQ, [place] [address]MW: 05/26/2018 Secondary NOT GIVENUNK [place] Insurance:SELF PAY [facility] Number: Effective Repository Date:2018-05-26 05/16/2018 DARA Jacobs Primary DARA Jacobs [place] [id number] Insurance:ANTHEMPolic REYNOLDSDOB: [facility] PAGE y Number: [id number], [place] [id number] Repository [address]Lbb: ([phone]) Date:0594-71-15OU [address] () [address]XFKESVLSKYLA AKINS [address]FQ: 05/16/2018 Secondary NOT GIVENUNK Y[place] Insurance:SELF PAY [facility] Number: Effective Repository Date:2018-05-16 05/02/[facility] [id number] Insurance:ANTHEMPolic REYNOLDSDOB: [facility] y Number: [id number] [place] [id number] Repository [address]Ojs: ([phone]) Date:1485-98-89GW [address] () [address] [place] [address]ZD: 05/02/2018 Secondary NOT GIVENUNK Y[place] Insurance:SELF PAY [facility] Number: Effective Repository Date:2018-05-02 04/18/2018 [facility] [place] [id number] Insurance:ANTHEMPolic REYNOLDSDOB: [facility] y Number: [id number], [place] [id number] Repository [address]Upo: ([phone]) Date:7941-45-27AC [address] () 0369[address]NZFBXTU, [place] [address]QS: 04/18/2018 Secondary NOT GIVENUNK Y[place] Insurance:SELF PAY [facility] Number: Effective Repository Date:2018-04-18 04/08/2018 [facility] [place] REYNOLDSDOB: Insurance:HENDRIX REYNOLDSDOB: Three Repository MANAGED [id number] [place] MEDICAIDPolicy [address] [place], [place] Number: [place], [place] [address]Dze: (699) [id number] [phone] () Date:4658-32-66GK [address] [place] [address]QG: 04/04/2018 [facility] [place] [id number] Insurance:ANTHEMPolic REYNOLDSDOB: [facility] [place]: [id number], [place] [id number] Repository 00942Yzc: ([phone]) Date:1876-67-54CF [address] () [id number], [place] [address]OR: 04/04/2018 Secondary NOT GIVENUNK [place] Insurance:SELF PAY [facility] Effective Repository Date:2018-04-04 04/04/2018 DARA Jacobs Primary DARA Jacobs [place] [id number] Insurance:ANTHEMPolic REYNOLDSDOB: Community PAGE y Number: [id number], [place] [id number] Repository 118[address]Unn: ([phone]) Date:9621-73-03ZZ [address] () [id number], [place] [address]FX: 04/04/2018 Secondary NOT GIVENUNK [place] Insurance:SELF PAY [facility] Number: Effective Repository Date:2018-04-04 04/04/2018 DARA Jacobs Primary DARA K [place] [id number] Insurance:ANTHEMPolic REYNOLDSDOB: Community [place] y Number: [id number], [place] [id number] Repository 139[address]Zht: ([phone]) Date:9636-14-22NL [address] () [address]33375JTEMSCU, [place] [address]WW: 04/04/2018 Secondary NOT GIVENUNK [place] Insurance:SELF PAY [facility] Number: Effective Repository Date:2018-02-06 03/14/2018 DARA Jacobs Primary DARA Jacobs [place] [id number] Insurance:ANTHEMPolic REYNOLDSDOB: Community [place] Number: [id number], [place] [id number] Repository [address]Ghf: ([phone]) Date:4129-75-70EI [address] () 602170KVHHSWI, [place] [address]RD: 03/14/2018 Secondary NOT GIVENUNK [place] Insurance:SELF PAY [facility] Number: Effective Repository Date:2018-02-21 02/11/2018 DARA Jacobs Primary DARA Reynaldo [place] [id number] Insurance:ANTHEMPolic REYNOLDSDOB: Community [place] Number: [id number], [place] [id number] Repository [address]Ubg: ([phone]) Date:0703-78-12SD [address] () [id number] AKINS [address]AF: 02/11/2018 Secondary NOT GIVENUNK [place] Insurance:SELF PAY [facility] Number: Effective Repository Date:2018-02-11 01/22/2018 [facility] [place] [id number] Insurance:ANTHEMPolic REYNOLDSDOB: Community [place] Number: [id number], [place] [id number] Repository [address]Dks: ([phone]) Date:0698-54-81XB [address] () [address]JLLTLKQSKYLA AKINS [address]QB: 01/22/2018 Secondary NOT GIVENUNK [place] Insurance:SELF PAY [facility] Number: Effective Repository Date:2018-01-17 01/20/2018 [facility] REYNOLDSDOB: Insurance:HENDRIX REYNOLDSDOB: Three Repository MANAGED [id number] [place] MEDICAIDPolicy 2 [place], [place] Number: [place], [place] [address]Pdt: (419) [id number] [phone] () Date:8944-64-00AF [id number] [place] [address]ED: 01/17/2018 [facility] [place] [id number] Insurance:ANTHEMPolic REYNOLDSDOB: Community [place] Number: [id number], [place] [id number] Repository [address]Olf: ([phone]) Date:5275-66-07NA [address] () 190407TCZLDNQ, [place] [address]UO: 01/17/2018 Secondary NOT GIVENUNK [place] Insurance:SELF PAY [facility] Number: Effective Repository Date:2018-01-17 01/17/2018 [facility] [id number] Insurance:ANTHEMPolic REYNOLDSDOB: Community [facility] Number: [id number], [place] [id number] Repository [address]Dvh: ([phone]) Date:0790-84-31EB [address] () [id number] [place] [address]OT: 01/17/2018 Secondary NOT GIVENUNK [place] Insurance:SELF PAY [facility] Number: Effective Repository Date:2018-01-17 [facility]/01/2018 [facility] [place] [id number] Insurance:ANTHEMPolic REYNOLDSDOB: Community [place] y Number: [id number], [place] [id number] Repository [address]Ajy: ([phone]) Date:4082-42-09HT [address] () 615800YYIAIUI, [place] [address]QH: 01/01/2018 Secondary NOT GIVENUNK [place] Insurance:SELF PAY [facility] Number: Effective Repository Date:2018-01-01 12/30/2017 [facility] REYNOLDSDOB: Insurance:AnthemPolic REYNOLDSDOB: Hospitals y Number: [id number] [place] [address] [id number] [address] [place] [address] Date:Plan Name:[place], [place] [id number]: [id number]: () () 12/11/2017 [facility] [place] [id number] Insurance:ANTHEMPolic REYNOLDSDOB: Community [place] y Number: [id number], [place] [id number] Repository [address]Gox: ([phone]) Date:1540-20-59TL [address] () [id number] [place] [address]VQ: 12/11/2017 Secondary NOT GIVENUNK [place] Insurance:SELF PAY [facility] Number: Effective Repository Date:2017-12-11 12/11/2017 [facility] REYNOLDSDOB: Insurance:1500 REYNOLDSDOB: [facility] Health ANTHEMPolicy Number: [id number] System COTT[place] Effective 2 [address] Repository [place], [place] Date:2017-11-15 - [place] [id number]: 1930-19-83Ripb [id number]: Name:CD:[id number] O (HP) [address] ()Tel: [phone]: ([phone] 12/11/2017 [facility] REYNOLDSDOB: Insurance:AnthemPolic REYNOLDSDOB: [facility] y Number: [id number] Repository [place] [id number] 2 [place], [place] Date:Plan Name:[place], [place] [id number]: [phone]: () (HP) 11/15/2017 [facility] REYNOLDSDOB: Insurance:1500 REYNOLDSDOB: [facility] ANTHEMPolicy Number: [id number] System COTTAGE Effective 2 [address] Repository [place], [place] Date:2017-11-15 - [place] [id number]: 2319-64-59Laxc [id number]: Name:CD:[id number] O (HP) [address] (HP)Tel: [phone]: (WP) [phone]
== END ==
PROVIDERS: Referring Provider Obstetrics & Gynecology; Visit Provider Obstetrics & Gynecology
DX: Z34.90 Encounter for supervision of normal pregnancy, unspecified, unspecified trimester (principal)
CPT/HCPCS: 87081

== ENCOUNTER 2018-06-15 21:58 | Inpatient (IN) | payer BC, MEDICAID, SELFPAY ==
[2018-06-06 10:14] VITALS: BMI 38.4
[2018-06-13 09:19] VITALS: BMI 38.4
[2018-06-15 20:44] VITALS: BMI 46.7
[2018-06-15] MEDS: Lactated Ringers 1,000 ML 50 ML IV (22:20)
[2018-06-15 22:44] LABS: Hematocrit 34.3 % (37-47); Hemoglobin 11.1 g/dl (12.0-15.0); Mean Corp Hgb Conc 32.4 g/gl (32-36); Mean Corpuscular Hgb 26.8 pg (27.0-32.0); Mean Corpuscular Volume 82.9 fL (81-99); Mean Platelet Vol. 8.5 fl (6.2-12.0); Platelet Count 255 K/mm3 (150-450); RBC Distribution Width CV 13.4 % (11.6-14.6); RBC Distribution Width SD 40.9 fl (35.1-43.9); Red Blood Count 4.14 M/mm3 (4.2-5.4); White Blood Count 16.4 K/mm3 (4.4-11.0)
[2018-06-15 22:53] LABS: Scan Indicated on CBC? Y/N NO
[2018-06-16] VITALS (11 sets, daily range): BP systolic 98–117; BP diastolic 56–68; PULSE 76–92; RESP 16; TEMP 36–36.8; O2SAT 93–99
[2018-06-16] MEDS: fentaNYL-bupivacaine (epidural) 100 ML BAG EPIDURAL (01:01)
[2018-06-16] MEDS: Lactated Ringers 1,000 ML 50 ML IV (01:07)
[2018-06-16] MEDS: Oxytocin 30 units/NS 500 ml 30 UNITS/500 ML IV.SOLN 334 UNITS IV (03:01)
--- NOTE | 2018-06-16 03:24 | HP.PCM_ITS ---
- Problem List (1) Active labor at term Status: Acute (2) Request for sterilization Status: Acute Comment: plan PPTL (3) Abnormal blood testing Status: Acute Comment: 12/11/17- preliminary positive HIV- retest was negative. tests repeated at previous office (4) Status: Acute Qualifiers: Comment: genetic and ntd screening declined. anatomy scan normal (5) Supervision of normal in second trimester Status: Acute Qualifiers: Comment: PRR EDC 06/25/18 Gr 3/ boy Marilia Peterson Spouse:Kirit (6) History of gestational diabetes Status: Acute History Date of Admission: 06/16/18 Final LELE: 06/25/18 Gestational age: 38 Weeks and 5 Days History of this : This is a 22 year-old, at 38 weeks gestational age presents in active labor 5-6 cm. Patient has had an uncomplicated and tonight denied any vaginal bleeding loss of fluid and admits good movement. Medical History: Medical History (Last Reviewed 06/13/18 @ 09:19 by Juju Clayton) Gestational diabetes O24.419 Allergies No Known Allergies Allergy (Verified 06/13/18 09:19) Home Medications: Home Medications docosahexanoic acid 200 mg capsule 1 tab PO DAILY 01/17/18 acetaminophen 500 mg tablet 500 mg PO Q6H PRN 03/14/18 loratadine 10 mg tablet 10 mg PO DAILY 05/16/18 Smoking Status: Former smoker Alcohol: None Number of Fetus(es): 1 Heart Tracing: heart tones 130s moderate variability reactive no decelerations category 1 tracing TOCO Analysis: 2-3 minutes History Past Pregnancies: Past Pregnancies Past Pregnancies Del. Date Name GA/Weeks Outcome Route Bth Weight Infant Gen Labor Lgth Anesthesia Del Locatn Provider FOB 12/20/15 Kristen 39 live - full term 7lbs 2oz Female epidural [facility] Dr. Nemo Beth Delivery Date: 12/20/15 On 01/17/18 @ 12:07 Dara Swartz Gestational diabetes. Patient was induced at 39 weeks due to gestational diabetes. No other issues during or delivery. Labs: Mom's Problem List Problem Status Onset Code Active labor at term Acute Mom's Labs & Results 06/15/18 06/15/18 22:20 22:20 WBC 16.4 H RBC 4.14 L Hgb 11.1 L Hct 34.3 L MCV 82.9 MCH 26.8 L MCHC 32.4 RDW 13.4 RDW Differential 40.9 Plt Count 255 MPV 8.5 Blood Type B POSITIVE Antibody Screen NEGATIVE Course Did the patient receive Yes care? Labs Blood Type: B RH: POSITIVE RPR/VDRL/Syphilis Nonreactive Rubella status Immune HbSAg Negative Date Done: 12/11/17 Chlamydia Negative Gonorrhea Negative HIV/AIDS Non-Reactive Group B Strep: Negative Current Obstetrical History Gestational Diabetes No Incompetent Cervix No Infertility No IUGR No Macrosomia No Hypertension/Pre-eclampsia No Placenta Previa/Abruption Yes: resolved PTL/PROM No Uterine anomaly No Oligohydramnios No Polyhydramnios No Multiple gestation No Past Medical History Asthma No Diabetes No Hypertension No Heart disease No Mitral valve prolapse No Neurologic/Seizure disorder/ No Migraines Kidney disease No Liver disease No Varicosities No Clotting disorders/Hx of DVT No Thyroid Dysfunction No Other medical diseases No Psychiatric disorders No Major trauma No Abnormal PAP smear No Sleep apnea No Mammogram in the last 2 years No Social History Marital Status: Alleged father Kirit Hx Smoking Yes Smoking Status Former smoker Expected Infant Delivery Method: Spontaneous Vaginal Review of Systems Constitutional: Denies: Fever, Malaise Eyes: Denies: Blurred vision, Vision Change HEENT: Denies: Head Aches, Visual Changes Cardiovascular: Denies: Chest Pain, Palpitations Respiratory: Denies: Cough, Shortness of Breath, Wheezing Gastrointestinal: Reports: Abdominal Pain. Denies: Diarrhea, Nausea, Vomiting Genitourinary: Denies: Dysuria, Hematuria Musculoskeletal: Denies: Joint Pain, Muscle pain Skin: Denies: Lesions, Rash Neurological: Denies: Blurred vision, Focal weakness, Headaches Psychiatric: Denies: Anxiety, Depression Endocrine: Denies: Heat/ Cold Intolerance Hematologic/ Lymphatic: Denies: Easy Bruising, Easy Bleeding Physical Exam General: Alert, Cooperative, No apparent distress HEENT: Atraumatic, Normocephalic. Negative for: Thyromegaly, Lymphadenopathy Cardiovascular: Regular rate Lungs: Normal air movement Abdomen: Soft, Non Tender, Gravid Neurological: Deep Tendon Reflexes 2+/4 and Symmetrical, Neuro grossly intact. Negative for: Clonus CARDIAC TECH: Normal external genitalia. Negative for: Vulvar lesions Estimated gestational size: Appropriate for gestational size Presentation: Cephalic Assessment/Plan All Active Problems (Last Reviewed 06/13/18 @ 09:19 by Juju Clayton) Active labor at term (Acute) Request for sterilization (Acute) Abnormal blood testing (Acute) (Acute) Supervision of normal in second trimester (Acute) History of gestational diabetes (Acute) Low lying placenta nos or without hemorrhage, second trimester (Resolved) This is a 22 year-old, at 38 weeks gestational age presents IAL Patient presents IAL, plan expectant management for , pitocin PRN. arom clear fluid Pain management: plans epidural. GBS negative Management of any complications: none. plan PPTL I have reviewed the [facility] and made any clinically relevant updates.
--- NOTE | 2018-06-16 03:27 | PCM.OB.VAG ---
- Problem List (1) Active labor at term Status: Acute (2) Request for sterilization Status: Acute Comment: plan PPTL (3) Abnormal blood testing Status: Acute Comment: 12/11/17- preliminary positive HIV- retest was negative. tests repeated at previous office (4) Status: Acute Qualifiers: Comment: genetic and ntd screening declined. anatomy scan normal (5) Supervision of normal in second trimester Status: Acute Qualifiers: Comment: PRR EDC 06/25/18 Gr 3/ boy Marilia Peterson Spouse:Kirit (6) History of gestational diabetes Status: Acute Vaginal Delivery Maternal Presentation: Active Labor 22 yo @ 38w5d IAL Amniotic Membrane Rupture Type: Artificial Amniotic Fluid Description: Clear Final LELE: 06/25/18 Gestational age: 38 Weeks and 5 Days Date of Procedure: 06/16/18 Pre-Operative Diagnosis: ial Post-Operative Diagnosis: same Surgery/ Procedure Performed: Spontaneous Vaginal Delivery Type of Anesthesia: Epidural Description of Procedure: Patient began pushing and delivered the head in the QASIM presentation. The head was delivered atraumatically. The anterior and posterior shoulders delivered without complication followed by the rest of the and the was placed on the maternal abdomen. Delayed cord clamping was employed for approximately 60 seconds. Cord was clamped and cut and gentle traction was applied to the cord and the placenta delivered spontaneously immediately following it was noted to be intact with three-vessel cord. The perineum and vagina were inspected and noted to have no laceration. EBL was 100 cc. Patient and infant tolerated delivery well. Presentation: VINITA Placental Delivery Description: Spontaneous Placenta Disposition: [facility] Cord Vessel Description: 3 Vessels Cord Entanglement: None Estimated Blood Loss: 100 Infant A gender: Male Episiotomy Description: None Laceration: None Medications given after delivery: IV Pitocin Complications: None
[2018-06-16] MEDS: Oxytocin 30 units/NS 500 ml 30 UNITS/500 ML IV.SOLN 167 UNITS IV (03:31)
--- NOTE | 2018-06-16 03:36 | DCINST_ITS ---
Discharge Diet: No Restrictions - Increase fluid intake for the next 48 hours. Discharge Activity: Return to Normal Activity, May Drive - when you are no longer taking narcotic pain medications., May Shower, May Take a Tub Bath - in 7 days Additional Activity Instructions:: Ambulate often the next week after surgery. Nothing in the vagina for 5 days. Call your doctor if your incision/area has: Continuous Slow Oozing, Sudden Increased Bleeding, Increased Pain/ Swelling, Increased Redness, Foul Smelling Discharge Call your doctor if you observe: Fever of 101 or Higher Allergies/Adverse Reactions: Allergies No Known Allergies Allergy (Verified 06/13/18 09:19) Medications to take at Discharge docosahexanoic acid 200 mg capsule 1 tab PO DAILY 01/17/18 acetaminophen 500 mg tablet 500 mg PO Q6H PRN 03/14/18 loratadine 10 mg tablet 10 mg PO DAILY 05/16/18 Primary Care Physician: Antonino Cole [Primary Care Provider] - Test Results: Test results from this visit will be discussed in further detail at your follow- up appointment, if applicable. Please Follow Up With: Elisa Dumont MD - [phone]
--- NOTE | 2018-06-16 03:37 | DCINST_ITS ---
Discharge Diet: No Restrictions - Increase fluid intake for the next 48 hours. Discharge Activity: Return to Normal Activity, May Drive - when you are no longer taking narcotic pain medications., May Shower, May Take a Tub Bath - in 7 days May resume sexual activity in: 4-6 weeks Additional Activity Instructions:: Ambulate often the next week after surgery. Nothing in the vagina for 5 days. Call your doctor if your incision/area has: Continuous Slow Oozing, Sudden Increased Bleeding, Increased Pain/ Swelling, Increased Redness, Foul Smelling Discharge Call your doctor if you observe: Fever of 101 or Higher Additional Instructions: If you experience any of the following, contact your healthcare provider. * Bleeding that soaks a pad every hour for 2 hours * Fever 100.4 or higher * Unrelieved incision or abdominal pain * Swelling, redness, discharge or bleeding from your incision or episiotomy site * Your incision begins to separate * Problems urinating (including inability to urinate or burning while urinating). * Visual changes * Severe headache * Flu-like symptoms * Pain or redness in one of both of your breasts * Pain, warmth, tenderness or swelling in your legs, especially the calf area * Frequent nausea and vomiting * Symptoms of depression or anxiety If you experience any of the following, call 911 or go to the nearest Emergency Room. * Chest pain * Problems breathing * Seizure activity * Partial or complete paralysis of a body part, slurred speech, weakness or drooping of the face, or a sudden inability to walk or hold your balance Allergies/Adverse Reactions: Allergies No Known Allergies Allergy (Verified 06/13/18 09:19) Medications to take at Discharge docosahexanoic acid 200 mg capsule 1 tab PO DAILY 01/17/18 acetaminophen 500 mg tablet 500 mg PO Q6H PRN 03/14/18 loratadine 10 mg tablet 10 mg PO DAILY 05/16/18 Please Follow Up With: Elisa Dumont MD - [phone] When: Call to make an appointment with your doctor in 6 weeks. If you had elevated Blood pressure or 4th degree laceration you will need to be seen in 2 weeks. Primary Care Physician: Antonino Cole [Primary Care Provider] - Test Results: Test results from this visit will be discussed in further detail at your follow- up appointment, if applicable.
[2018-06-16] MEDS: Lactated Ringers 1,000 ML 15 ML IV ×2 (04:35→12:24)
[2018-06-16] MEDS: Acetaminophen 500 MG Tablet PO (07:39)
--- NOTE | 2018-06-16 14:33 | PCM.OPRPT ---
Problem List (1) Active labor at term Status: Acute (2) Request for sterilization Status: Acute Comment: plan PPTL (3) Abnormal blood testing Status: Acute Comment: 12/11/17- preliminary positive HIV- retest was negative. tests repeated at previous office (4) Status: Acute Qualifiers: Comment: genetic and ntd screening declined. anatomy scan normal (5) Supervision of normal in second trimester Status: Acute Qualifiers: Comment: PRR EDC 06/25/18 Gr 08/15 boy NoahPC Kristen Spouse:Kirit (6) History of gestational diabetes Status: Acute Report of Operation Date of Procedure: 06/16/18 Pre-Operative Diagnosis: sterilization Post-Operative Diagnosis: same Surgery/Procedure Performed:: tubal ligation via Filshie clips Description of Surgical Findings:: Normal uterus and tubes and ovaries bilaterally Type of Anesthesia:: Epidural Special Medications: none Specimen's removed: none Drains: Devlin Estimated Blood Loss (mL): 100 Fluids Replaced: cryStyloid Description of Procedure: Patient was taken to the operating room and epidural anesthesia was found to be adequate. Patient was placed in the dorsal supine position was prepped and draped in normal sterile fashion. Devlin catheter was used to drain the bladder. Infra umbilical incision was made with a scalpel after injecting with marcaine and carried through the underlying layer of the fascia with a scalpel fascial incision was extended bilaterally with Aguilera scissors and bowel packed away and the right fallopian tube identified confirmed to be fallopian tube by following it out to the fimbria and a Filshie clip was applied in the mid interstitial portion of the fallopian tube noting to completely transect the tube. This was repeated on the left side where the tube was identified and followed out to the fimbria and confirmed to be fallopian tube and then the mid interstitial portion of the tube was completely transected with the Filshie clip. Excellent hemostasis was noted. Fascia was closed with 0 Vicryl and skin closed with 3-0 Monocryl. No complications. Patient was taken recovery in stable condition. Grafts/Implants Used: Filshie clips - Complications none
[2018-06-16] MEDS: Bupivacaine 0.25% 30 ML Vial (14:53)
[2018-06-16] MEDS: oxyCODONE 5 MG Tablet PO (17:45)
[2018-06-16] MEDS: Naproxen 250 MG Tablet PO (19:05)
[2018-06-16] MEDS: Acetaminophen 500 MG Tablet 1000 MG PO (19:13)
[2018-06-17 00:12] VITALS: BP 119/73; PULSE 90; RESP 16; TEMP 37
[2018-06-17 02:59] VITALS: BP 108/71; PULSE 76; RESP 16; TEMP 37.1
[2018-06-17] MEDS: Acetaminophen 500 MG Tablet 1000 MG PO ×2 (03:05→12:36)
[2018-06-17] MEDS: Naproxen 250 MG Tablet PO (07:21)
[2018-06-17 08:05] VITALS: BP 123/76; PULSE 88; RESP 16; TEMP 37.1; O2SAT 98
--- NOTE | 2018-06-17 11:34 | PCM.PN.OB ---
Patient Problems: Active and Suspected Problems (Last Reviewed 06/13/18 @ 09:19 by Juju Clayton) Active labor at term (Acute) Subjective: doing well pain controlled now no CP SOB N V - Physical Exam General: Alert, Oriented x3 Vital Signs Temp Pulse Resp BP Pulse Ox 98.7 F 88 16 123/76 H 98 06/17/18 08:05 06/17/18 08:05 06/17/18 08:05 06/17/18 08:05 06/17/18 08:05 Oxygen Delivery Method Room Air Weight: 263 lb 10.766 oz Body Mass Index (BMI) 46.7 Intake and Output for Last 24 Hours 06/15/18 06/16/18 06/17/18 23:59 23:59 23:59 Intake Total 500 / 500 Output Total 900 / 900 Balance -400 / -400 Medical Necessity - Tobacco Use Smoking Status: Former smoker Assessment/Plan All Active Problems (Last Reviewed 06/13/18 @ 09:19 by Juju Clayton) Active labor at term (Acute) Request for sterilization (Acute) Abnormal blood testing (Acute) (Acute) Supervision of normal in second trimester (Acute) History of gestational diabetes (Acute) Low lying placenta nos or without hemorrhage, second trimester (Resolved) s/p PPD # 1 1. routine post delivery care 2. breast feeding- support given 3. rh positive 4. rubella immune
[2018-06-17 13:15] VITALS: BP 114/68; PULSE 78; RESP 16; TEMP 36.7; O2SAT 99
--- NOTE | 2018-06-19 16:30 | CASEMGMT ---
Social Work Labor and Delivery Unit Consult received on 06-16-18 for maternal history of depression. Mother of baby (MOB) and baby discharged over the holiday 06-17-18, prior to being seen by social work. Attempted to reach MOB via phone number provided to this scientific writer. Spoke with MOB briefly on 06-19-2018 as to who this caller was. MOB pleasant and indicated that taking baby to get some labs drawn and will be available in an hour or so. Tried to call MOB back, had to leave a voice message. Left this scientific writer?s number to call. Per chart review, no identified concerns regarding MOB actions or interactions with staff or baby. If MOB returns call can offer to mail some resources. Otherwise, MOB was released prior to consult per physician order for discharge. -JUANCHO Gaspar, JOURNALIST
== END 2018-06-17 13:35 | disposition home or self-care (01) | DRG 798 ==
LOC: WPOUT 22:03 → WP 22:07
PROVIDERS: Admitting Provider Obstetrics & Gynecology; Family Provider Family Medicine; PCP Family Medicine; Referring Provider Obstetrics & Gynecology; Visit Provider Obstetrics & Gynecology
PROC: 0UL70ZZ Occlusion of Bilateral Fallopian Tubes, Open Approach (ICD-10-PCS; principal; 2018-06-16 07:15)
DX: O99.214 Obesity complicating childbirth (principal); E66.01 Morbid (severe) obesity due to excess calories; Z30.2 Encounter for sterilization; Z86.32 Personal history of gestational diabetes; Z87.891 Personal history of nicotine dependence; Z3A.38 38 weeks gestation of pregnancy; Z37.0 Single live birth
CPT/HCPCS: 59025; 59050; 85027; 86850; 86900; 99218; J7120; G0378; J2405

== ENCOUNTER → 2019-03-20 10:45 | Outpatient (CLI) | payer MEDICAID, SELFPAY ==
[2019-03-20 10:13] VITALS: BMI 39.2
[2019-03-20 11:29] LABS: Thyroid Stim Hormone (TSH) 1.04 uIU/mL (0.358-3.74)
[2019-03-25 13:06] LABS: HPV Reflexed? NOT INDICATED
== END ==
PROVIDERS: Family Provider Family Medicine; PCP Family Medicine; Referring Provider Obstetrics & Gynecology; Visit Provider Obstetrics & Gynecology
DX: Z12.4 Encounter for screening for malignant neoplasm of cervix (principal); R63.5 Abnormal weight gain
CPT/HCPCS: 36415; 84439; 84443; 88175; G0145

== ENCOUNTER 2021-06-21 09:20 | Outpatient (CLI) | payer MEDICAID, SELFPAY ==
--- NOTE | 2021-06-21 09:25 | BI_ITS ---
MAMMOGRAPHY - BILATERAL DIAGNOSTIC REASON FOR EXAM: Female, 25 years old. Pea-sized lump just inferior to the right nipple. PERTINENT HISTORY: Grandmother with breast cancer. TECHNIQUE: Digital bilateral breast carmen (3D mammographic acquisition) in the CC and MLO projections. 2-D mediolateral oblique (MLO) and craniocaudad (CC) views of both breasts were obtained. CAD: Full Field Digital Mammography with Computer Added Detection was performed. COMPARISON: None. Baseline examination. FINDINGS: Breast Composition: There are scattered areas of fibroglandular density. There are no dominant masses or suspicious calcifications. No other significant abnormalities are identified. BI/DIAG MAMM W/CAD, BILAT IMPRESSION: Negative diagnostic mammogram. With the patient''s history of a pea size lump in the region of the right periareolar region, correlation with ultrasound is recommended. ASSESSMENT CATEGORY: BIRADS Category 0: Incomplete. Need additional imaging evaluation. A letter regarding these results will be sent to the patient by the facility within 30 days. Approximately 10% of breast cancers are not detected by mammography. A normal mammogram should not delay biopsy of a clinically suspicious abnormality. Electronically Signed: Judah Pena MD at 10:47 EST , Service support ,
--- NOTE | 2021-06-21 09:25 | US_ITS ---
STUDY: ULTRASOUND BREAST - RIGHT REASON FOR EXAM: Female, 25 years old. Palpable lump in the right breast. TECHNIQUE: Axial and longitudinal images of the RIGHT breast were performed with a high resolution ultrasound transducer. # OF IMAGES: 27 COMPARISON: Comparison is made with prior mammogram dated 06/21/2021. FINDINGS: RIGHT Breast: The palpable abnormality corresponds to a 4 mm x 4 mm x 4 mm superficial cystic structure with low-level echoes within it. This may represent a sebaceous cyst. Clinical correlation is recommended. US/Breast Limited Unilateral IMPRESSION: 4 mm x 4 mm x 4 mm superficial cystic structure with low level echoes within it corresponding to the palpable abnormality. This most likely represents a sebaceous cyst. ASSESSMENT CATEGORY: BIRADS Category 2: Benign. A letter regarding these results will be sent to the patient by the facility within 30 days. Electronically Signed: Judah Pena MD at 15:10 EST , Service support ,
== END 2021-06-21 23:59 | disposition short-term general hospital (02) ==
PROVIDERS: PCP Family Medicine; Referring Provider Nurse Practitioner Women's Health; Visit Provider Nurse Practitioner Women's Health
DX: N63.10 Unspecified lump in the right breast, unspecified quadrant (principal)
CPT/HCPCS: 76642; 77062; 77066; G0279

== ENCOUNTER 2021-08-01 17:24 | Outpatient (CLI) | payer MEDICAID, SELFPAY ==
[2021-08-07 13:42] LABS: HPV Reflexed? NOT INDICATED
== END 2021-08-01 23:59 | disposition home or self-care (01) ==
PROVIDERS: PCP Family Medicine; Visit Provider Obstetrics & Gynecology
DX: Z12.4 Encounter for screening for malignant neoplasm of cervix (principal)
CPT/HCPCS: 88175; G0145